=== PATIENT | female | born 1950 | race Caucasian/White ===

== ENCOUNTER → 2016-06-27 | Outpatient (CLI) | payer BC ==
[~2016-06-27] MED LIST: ACAI500C2 PO; B-COTAB18 PO; BIOT1CAP8 PO; CALC-51 PO; CARB25TA2 PO; DORZ1SOL6 OPB; ESTR1CRE PV; FERR1TAB23 PO; FEXO1TAB49 PO; FLUT0.15 NAE; GLUCPOW41 PO; LACTCAP3 PO; LEVO50TA6 PO; MAGN250T22 PO; MULT-506 PO; OMEGCAP2 PO; OXYC-57 PO; TURM1CAP4 PO; VITACAP26 PO; VITAMIN D PO; [UNRECOGNIZED DRUG - OTHER] PO
--- NOTE | 2016-06-27 12:59 | DIAGNOSTIC IMAGING REPORT ---
CT SINUSES WITH BRAIN LAB CT DOSE: 474.75 mGy.cm CLINICAL HISTORY: Sinus blockage. TECHNIQUE: Helical images were acquired in the transverse plane. Coronal reformatted images and sagittal reformatted images were reviewed. COMPARISON STUDY: 05/29/2008 FINDINGS: No orbital lesions are visualized. The mastoid air cells appear symmetrically aerated. Middle ear cavities appear well aerated. There is mild to moderate right maxillary sinus mucosal thickening. There is minimal left maxillary sinus mucosal thickening. The Sphenoid and ethmoid sinuses appear clear. The frontal sinuses appear hypoplastic. The ostiomeatal units appear patent bilaterally. There is a right-sided Buffy cell There is a 15 mm expansile lytic lesion, related to the roots of 2 right-sided maxillary molars. There is focal disruption of the floor the right maxillary sinus. The finding was not present on the preceding study. Also evident are apical lucencies related to left maxillary molars. IMPRESSION: 1. The ostiomeatal units are patent bilaterally 2. Moderate right maxillary sinus mucosal thickening 3. Lytic lesions related to the roots of bilateral maxillary molars. These likely represent periapical cysts. On the right, the cyst is expansile with focal disruption of the floor the right maxillary sinus. Oral surgeon/dental consultation should be considered. Electronically signed by: Enio Christensen M.D. 06/27/2016 12:58 PM Dictated Date/Time: 06/27/2016 12:49 PM
== END | disposition home or self-care (01) ==
LOC: C.CTS 12:35
PROVIDERS: ATTEND Otolaryngology
DX: J32.9 Chronic sinusitis, unspecified (principal)

== ENCOUNTER → 2016-07-04 | Outpatient (CLI) | payer BC | LOC: C.CPL 11:50 | PROVIDERS: ATTEND Otolaryngology | DX: Z01.818 Encounter for other preprocedural examination (principal) ==

== ENCOUNTER → 2016-07-12 | Outpatient (CLI) | payer BC ==
[~2016-07-12] MED LIST changes: -[UNRECOGNIZED DRUG - OTHER] PO
--- NOTE | 2016-07-12 09:45 | DIAGNOSTIC IMAGING REPORT ---
LEFT PELVIS UNI HIP 2-3 V CLINICAL HISTORY: LEFT HIP, FOOT, HAND PAIN pain COMPARISON: None. DISCUSSION: Generalized moderate degenerative change. No evidence for acetabular protrusion. Sclerosis of the articular services. There is no evidence for soft tissue swelling. IMPRESSION: Generalized moderate degenerative change. No acute process. Electronically signed by: Lucas Westbrook M.D. 07/12/2016 9:44 AM Dictated Date/Time: 07/12/2016 9:39 AM
--- NOTE | 2016-07-12 09:47 | DIAGNOSTIC IMAGING REPORT ---
LEFT HAND 3 VIEWS CLINICAL HISTORY: Left hand pain. FINDINGS: 3 views of the left hand are compared to study dated 04/14/2010. The skeletal structures are osteopenic. No fracture is seen. Mild narrowing is seen at the radiocarpal articulation. Mild osteoarthritic change is noted at the first carpometacarpal and metacarpophalangeal joints. Mild osteoarthritic change is also seen involving the interphalangeal joints, distal greater than proximal. No erosive change is seen. Overlying soft tissues are within normal limits. IMPRESSION: Osteopenia and arthritic change as above. No acute bony abnormality is identified. Electronically signed by: Cipriano Lopez M.D. 07/12/2016 9:46 AM Dictated Date/Time: 07/12/2016 9:45 AM
--- NOTE | 2016-07-12 09:48 | DIAGNOSTIC IMAGING REPORT ---
LEFT FOOT 3 VIEWS HISTORY: LEFT HIP, FOOT, HAND PAIN COMPARISON: None. FINDINGS: There is no fracture or dislocation. Soft tissues are unremarkable. No radiopaque foreign bodies. Small soft tissue and bony bunion. Cartilage spaces are maintained. The Lisfranc joint is intact. IMPRESSION: No fractures. Electronically signed by: Cam Zeng M.D. 07/12/2016 9:47 AM Dictated Date/Time: 07/12/2016 9:45 AM
== END | disposition home or self-care (01) ==
LOC: C.RDSM 09:26
PROVIDERS: ATTEND Family Medicine
DX: M25.552 Pain in left hip (principal); M79.672 Pain in left foot; M79.642 Pain in left hand

== ENCOUNTER → 2016-07-21 | Day surgery (SDC) | payer BC ==
[2016-07-06 11:26] VITALS: Ht 153.7 cm; Wt 53.2 kg
--- NOTE | 2016-07-20 21:28 | HISTORY & PHYSICAL EXAMINATION ---
DATE OF ADMISSION: 06/27/2016 DIAGNOSIS: Chronic sinusitis. HISTORY OF PRESENT ILLNESS: A 66-year-old lady with significant recurrent chronic sinusitis. CT scan documented opacification of both maxillary sinuses. PAST MEDICAL HISTORY: Medical problems: Arthritis. SURGERIES: Carpal tunnel repair, uterine fibroid removal, and cyst left arm. MEDICATIONS: Levothyroxine, Sinemet, Michaela, and Cosopt. ALLERGIES: AMOXICILLIN, CIPRO AND SULFONAMIDES. REVIEW OF SYSTEMS: Positive for arthritis. SOCIAL HISTORY: nonsmoker. PHYSICAL EXAMINATION: GENERAL: WNWD female. VITAL SIGNS: 5 feet and 117 pounds. HEAD: Normocephalic. EYES: Normal. EARS: Tympanic membranes intact. NOSE: Nasal passages show swollen turbinates. THROAT: Oropharynx normal. NECK: Supple. HEART: RRR. LUNGS: Clear. ABDOMEN: Soft. GENITOURINARY: Deferred. IMPRESSION: Recurrent and chronic sinusitis. PLAN: For endoscopic sinus surgery. CAMERON
[~2016-07-21] VITALS: Ht 153.7 cm; Wt 53.2 kg
[~2016-07-21] MED LIST changes: +ATROPINE SULFATE 0.1 MG/ML 5ML SYR IV PRN; +CEFAZOLIN 1000MG/55 ML D5W IV SCH; +DEXAMETHASONE SOD INJ 4 MG/ML VIAL ONE; +EpHEDrine SULFATE INJ 50 MG/ML AMP IV PRN; +EpINEphrine INJ 1MG/ML AMP 1 MG/ML AMP ONE; +FENTANYL CITRATE INJ 50 MCG/1 ML 2 ML VIAL IV PRN; +FENTANYL CITRATE INJ 50 MCG/1 ML 2 ML VIAL ONE; +LACTATED RINGER'S 1000ML 1,000 ML IV SCH; +LIDO 2%/EPINEPHRINE 1:100000 20 ML VIAL INFIL ONE; +LIDOCAINE 4% MPF SOAK 5 ML = 1 DOSE TOP ONE; +LIDOCAINE HCL 2% 2 ML VIAL (20MG/ML) ONE; +MIDAZOLAM HCL 1 MG/ML 2ML VIAL ONE; +ONDANSETRON INJ 2 MG/ML 2 ML VIAL IV PRN; +ONDANSETRON INJ 2 MG/ML 2 ML VIAL ONE; +OXYCODONE/ACETAMINOPHEN 5-325 TAB PO PRN; +OXYMETAZOLINE HCL 0.05% NA SPR 15 ML BTL SCH; +PATIENT'S ALLERGY INFO NEEDS ENTERED SCH; +PROPOFOL IV EMULSION 10 MG/ML 20 ML VIAL IV ONE; +SODIUM CHLORIDE 0.9% 1000ML 1,000 ML IV SCH
--- NOTE | 2016-07-21 10:20 | History & Physical Bridge Note ---
H&P Re-Evaluation Bridge Note: I have examined the patient, reviewed the History & Physical and in the interval since the performance of the History & Physical I have noted the following changes of clinical significance: No changes noted
--- NOTE | 2016-07-21 10:22 | Discharge Instructions-SurgCtr ---
Discharge Instructions Date of Service July 21, 2016. Visit Reason for Visit: Chronic Sinusitis Discharge Discharge Diagnosis / Problem: same Discharge Goals Goal(s): Improve function Medications Stopped Medications Name(s): 2 advil taken yesterday am Activity Recommendations Activity Limitations: resume your previous activity Anesthesia . Post Anesthesia Instructions: If you have had General Anesthesia or IV Sedation: * Do not drive today. * Resume driving when surgeon permits. * Do not make important decisions or sign legal documents today. * Call surgeon for: 1. Temperature elevations greater than 101 degrees F. 2. Uncontrollable pain. 3. Excessive bleeding. 4. Persistent nausea and vomiting. 5. Medication intolerance (nausea, vomiting or rash). * For nausea and vomiting use only clear liquids such as: tea, soda, bouillon until nausea subsides, then gradually increase diet as tolerated. * If you have any concerns or questions, call your surgeon's office. If physician is unavailable and it is an emergency, call 911 or go to the nearest emergency room. . Instructions / Follow-Up Instructions / Follow-Up ACTIVITY RECOMMENDATIONS: * Being up and around is good, but no strenuous activity, heavy lifting or physical exertion for one week. * Keep your head elevated 30 degrees when lying down or sleeping. * Do not blow your nose for 48 hours, sniff back instead. * Avoid hot showers. OVER THE COUNTER MEDICATIONS: * You may use Tylenol * Avoid aspirin or aspirin containing products, e.g. as they may increase bleeding. SPECIAL CARE INSTRUCTIONS: * Expect to have bloody drainage from your nose and/or down your throat for one to three days. Change drip pad as needed. * Begin irrigating your nose with saline solution today, at least six to ten times per day and sniff back to help remove old clots or crust. * You may experience nasal and facial congestion, pain and pressure, this is normal. * Please call with any significant and/or progressive pain, redness, swelling around the eyes, visual changes, fever of 101.5 degrees F, active bleeding or any problems or concerns. * If active bleeding occurs, spray the nose three times at one minute intervals with Afrin spray and call or cell phone: . If unable to reach the doctor, go to the nearest Emergency Department. Special Diet: * Avoid extremely hot fluids. FOLLOW UP VISIT: Follow-up Visit with Dr. Mcmanus If not already scheduled, please call to schedule. Diet Recommendations Home Diet: no limitations Pending Studies Studies pending at discharge: no Medical Emergencies . Who to Call and When: Medical Emergencies: If at any time you feel your situation is an emergency, please call 911 immediately. . Non-Emergent Contact Non-Emergency issues call your: Primary Care Provider . . "Provider Documentation" section prepared by Pamela Mcmanus. . [place] Drug Monitoring Program Search Results: no issues identified
--- NOTE | 2016-07-21 12:01 | OPERATIVE REPORT ---
DATE OF OPERATION: 07/21/2016 PREOPERATIVE DIAGNOSIS: Chronic sinusitis. POSTOPERATIVE DIAGNOSIS: Same. PROCEDURE: Right and left frontal, right and left total ethmoid and right and left maxillary sinus antrostomy. SURGEON: Dr. Mcmanus. ANESTHESIA: General LMA. COMPLICATIONS: None. BLOOD LOSS: 30 mL. HISTORY OF PRESENT ILLNESS: This 66-year-old lady presented with recurrent and chronic sinusitis, opacified maxillary sinuses. DESCRIPTION OF PROCEDURE: The patient brought to the operating room and placed in supine position. General anesthesia was induced using LMA, prepped, draped in usual sterile manner. The nose was decongested using cottonoids with topical solution of 4 mL of 4% Xylocaine mixed with 1 mL of epinephrine. Injection 1% Xylocaine with 1:1,000 strength epinephrine was also used. The right maxillary sinus was cannulated with guidewire and dilated using the 6 mm balloon. The guidewire was removed and the maxillary sinus was irrigated clean with 60 mL of saline. Left maxillary sinus was also dilated with the 6 mm balloon. The right nasal frontal duct was cannulated with guidewire and dilated using the 6 mm balloon with [email or web address] computer guidance. The right frontal sinus was small. The guidewire was left in place as a marker, guidewire was used as a marker for frontal sinusotomy, which was performed by coupling the shaver with the [email or web address] device and then removing the anterior wall and then the posterior wall of the agger nasi cell, opening up the nasofrontal duct. At this point, total ethmoidectomy was performed opening up the bullae ethmoidalis going through the ground lamella into the posterior ethmoid air cells. Using the shaver coupled with the [email or web address] device, the skull base and lamina papyracea were delineated and then followed anteriorly to exonerating all the posterior ethmoid air cells with polypoid mucosa and then up to the previously dilated nasofrontal duct with the shaver opening up all the anterior ethmoid air cells. Maxillary sinus was further widened using a seeker posteriorly and then widened using the shaver opening the maxillary ostia to 1 cm to visualize inside the maxillary sinus. Maxillary sinus was suctioned clean with the angled suction. The left frontal sinusotomy, total ethmoidectomy, and maxillary sinus antrostomy performed in similar manner. Propel stents were placed. The patient tolerated procedure well and was taken to recovery area in satisfactory condition. I attest to the content of the Intraoperative Record and any orders documented therein. Any exceptio ns are noted below.
--- NOTE | 2016-07-21 12:29 | Anesthesia Progress Nt - [facility] ---
Anesthesia Post Op Note Date & Time July 21, 2016 at 12:29 Vital Signs Pain Intensity: 3 Vital Signs Past 12 Hours Date Time Temp Pulse Resp B/P Pulse Ox O2 Delivery O2 Flow Rate FiO2 07/21/16 12:18 137/70 100 07/21/16 12:16 36.4 07/21/16 12:15 47 12 100 07/21/16 12:15 45 12 07/21/16 12:11 123/69 07/21/16 12:10 46 16 98 07/21/16 12:10 45 16 07/21/16 12:07 135/70 07/21/16 12:05 52 16 07/21/16 12:05 51 16 99 07/21/16 12:02 162/51 07/21/16 12:00 56 16 07/21/16 12:00 16 07/21/16 11:56 100/79 07/21/16 11:55 54 12 100 07/21/16 11:55 54 12 07/21/16 11:51 126/77 07/21/16 11:50 62 13 07/21/16 11:50 63 13 99 07/21/16 11:46 102/55 07/21/16 11:45 48 14 97 07/21/16 11:45 47 14 07/21/16 11:41 104/55 07/21/16 11:40 49 11 97 07/21/16 11:40 50 11 07/21/16 11:36 104/57 07/21/16 11:35 50 14 97 07/21/16 11:35 50 14 07/21/16 11:31 101/60 07/21/16 11:30 53 13 07/21/16 11:30 53 13 96 07/21/16 11:29 36.2 54 14 100/58 96 Humidified Oxygen 10 Diffusion Mask 07/21/16 08:37 36.7 59 16 102/69 95 Room Air Notes Mental Status: alert / awake / arousable, participated in evaluation Pt Amnestic to Procedure: Yes Nausea / Vomiting: adequately controlled Pain: adequately controlled Airway Patency, RR, SpO2: stable & adequate BP & HR: stable & adequate Hydration State: stable & adequate Anesthetic Complications: no major complications apparent
[2016-07-21 12:54] VITALS: BP 121/74; PULSE 42; TEMP 36.4; O2SAT 100
== END | disposition home or self-care (01) ==
LOC: X.SURG 08:15
PROVIDERS: ATTEND Otolaryngology
DX: J32.9 Chronic sinusitis, unspecified (principal); M19.90 Unspecified osteoarthritis, unspecified site

== ENCOUNTER → 2016-08-09 | Day surgery (SDC) | payer BC ==
[2016-08-05 13:38] VITALS: Ht 153.7 cm; Wt 53.2 kg
[~2016-08-09] VITALS: Ht 153.7 cm; Wt 53.2 kg
[~2016-08-09] MED LIST changes: -ATROPINE SULFATE 0.1 MG/ML 5ML SYR IV PRN; +BRIMONIDINE TART 0.2% OP SOLN PER DROP CHARGE OPL ONE; +BRIMONIDINE TART 0.2% OP SOLN PER DROP CHARGE OPL SCH; +BRIMONIDINE TARTRATE 0.2% 5ML OP SCH; -CEFAZOLIN 1000MG/55 ML D5W IV SCH; -DEXAMETHASONE SOD INJ 4 MG/ML VIAL ONE; -EpHEDrine SULFATE INJ 50 MG/ML AMP IV PRN; -EpINEphrine INJ 1MG/ML AMP 1 MG/ML AMP ONE; -FENTANYL CITRATE INJ 50 MCG/1 ML 2 ML VIAL IV PRN; -FENTANYL CITRATE INJ 50 MCG/1 ML 2 ML VIAL ONE; -LACTATED RINGER'S 1000ML 1,000 ML IV SCH; -LIDO 2%/EPINEPHRINE 1:100000 20 ML VIAL INFIL ONE; -LIDOCAINE 4% MPF SOAK 5 ML = 1 DOSE TOP ONE; -LIDOCAINE HCL 2% 2 ML VIAL (20MG/ML) ONE; -MIDAZOLAM HCL 1 MG/ML 2ML VIAL ONE; -ONDANSETRON INJ 2 MG/ML 2 ML VIAL IV PRN; -ONDANSETRON INJ 2 MG/ML 2 ML VIAL ONE; -OXYCODONE/ACETAMINOPHEN 5-325 TAB PO PRN; -OXYMETAZOLINE HCL 0.05% NA SPR 15 ML BTL SCH; -PATIENT'S ALLERGY INFO NEEDS ENTERED SCH; +PILOCARPINE HCL 2% OP SOLN PER DROP CHARGE OPL SCH; +PROPARACAINE 0.5% OP SOLN PER DROP CHARGE OPL SCH; -PROPOFOL IV EMULSION 10 MG/ML 20 ML VIAL IV ONE; +PrednisoLONE ACET 1% OP SUSP 5 ML BTL OP SCH; -SODIUM CHLORIDE 0.9% 1000ML 1,000 ML IV SCH; +[UNRECOGNIZED DRUG - REMARK] SCH
[2016-08-09 11:19] VITALS: BP 121/58; PULSE 51; O2SAT 96
--- NOTE | 2016-08-09 11:21 | Discharge Instructions-SurgCtr ---
Discharge Instructions Date of Service Aug 09, 2016. Visit Reason for Visit: Glaucoma Discharge Discharge Diagnosis / Problem: Glaucoma Discharge Goals Goal(s): Improve disease control Activity Recommendations Activity Limitations: resume your previous activity Anesthesia . Post Anesthesia Instructions: If you have had General Anesthesia or IV Sedation: * Do not drive today. * Resume driving when surgeon permits. * Do not make important decisions or sign legal documents today. * Call surgeon for: 1. Temperature elevations greater than 101 degrees F. 2. Uncontrollable pain. 3. Excessive bleeding. 4. Persistent nausea and vomiting. 5. Medication intolerance (nausea, vomiting or rash). * For nausea and vomiting use only clear liquids such as: tea, soda, bouillon until nausea subsides, then gradually increase diet as tolerated. * If you have any concerns or questions, call your surgeon's office. If physician is unavailable and it is an emergency, call 911 or go to the nearest emergency room. . Instructions / Follow-Up Instructions / Follow-Up ACTIVITY RECOMMENDATIONS: * No limitations RETURN TO SCHOOL/WORK: * No limitations DIET: * No limitations MEDICATIONS: Resume previous medications unless instructed otherwise by your surgeon. * Please use Prednisolone acetate drops prescription given to you at your office appointment as follows: 1 drop in effected eye 4 times a day for 5 days. * Continue all glaucoma drops as usual with no interruption to either eye. SPECIAL CARE INSTRUCTIONS: Call your doctor at with any concerns or problems. FOLLOW UP VISIT: Follow-up with Dr Valenzuela in 1 hour. Diet Recommendations Home Diet: resume previous diet Pending Studies Studies pending at discharge: no Medical Emergencies . Who to Call and When: Medical Emergencies: If at any time you feel your situation is an emergency, please call 911 immediately. . Non-Emergent Contact Non-Emergency issues call your: Breakfast Host . . "Provider Documentation" section prepared by Yariel Valenzuela. .
--- NOTE | 2016-08-09 11:22 | [facility] Operative Report ---
Operative Report Date of Service Aug 09, 2016. Operative Report Diagnosis: Open angle glaucoma, left eye Procedure: SLT left eye, inferior 180 degrees, 72 spots, 1.3 mJ Complications: none I attest to the content of the Intraoperative Record and any orders documented therein. Any exceptions are noted below.
== END | disposition home or self-care (01) ==
LOC: X.SURG 09:49
PROVIDERS: ATTEND Ophthalmology
DX: H40.10X0 Unspecified open-angle glaucoma, stage unspecified (principal)

== ENCOUNTER → 2016-10-17 | Outpatient (CLI) | payer BC ==
[~2016-10-17] MED LIST changes: -BRIMONIDINE TART 0.2% OP SOLN PER DROP CHARGE OPL ONE; -BRIMONIDINE TART 0.2% OP SOLN PER DROP CHARGE OPL SCH; -BRIMONIDINE TARTRATE 0.2% 5ML OP SCH; -PILOCARPINE HCL 2% OP SOLN PER DROP CHARGE OPL SCH; -PROPARACAINE 0.5% OP SOLN PER DROP CHARGE OPL SCH; -PrednisoLONE ACET 1% OP SUSP 5 ML BTL OP SCH; -[UNRECOGNIZED DRUG - REMARK] SCH
== END | disposition home or self-care (01) ==
LOC: C.RDSM 14:38
PROVIDERS: ATTEND Physical Medicine & Rehabilitation Sports Medicine
DX: M25.559 Pain in unspecified hip (principal)

== ENCOUNTER → 2016-10-21 | Outpatient (CLI) | payer BC ==
[~2016-10-21] MED LIST changes: -OXYC-57 PO
--- NOTE | 2016-10-21 15:28 | DIAGNOSTIC IMAGING REPORT ---
LEFT ELBOW MIN 3 VIEWS CLINICAL HISTORY: 66 years-old Female presenting with LEFT ELBOW MASS. TECHNIQUE: Frontal, oblique, and lateral views of the left elbow were obtained. COMPARISON: None. FINDINGS: No acute fracture or malalignment. No osseous erosion. No gross evidence of an elbow joint effusion. Regional soft tissues normal without radiographic evidence of a large mass. IMPRESSION: No acute osseous injury of the right elbow. If there is clinical concern for a soft tissue abnormality, MRI could be obtained. Electronically signed by: Robel Newman M.D. 10/21/2016 3:27 PM Dictated Date/Time: 10/21/2016 3:26 PM
== END | disposition home or self-care (01) ==
LOC: C.RDSM 14:35
PROVIDERS: ATTEND Physician Assistant
DX: R22.32 Localized swelling, mass and lump, left upper limb (principal)

== ENCOUNTER → 2016-10-21 | Outpatient (CLI) | payer BC ==
[2016-10-21 16:52] LABS: BASO % 0.6 %; BASO ABS # 0.04 K/uL (0-0.2); COMPLETE YES; EOS % 4.6 %; HEMATOCRIT 39.8 % (37-47); IG% 0.2 %; LYMPH % 16.7 %; LYMPH ABS # 1.05 K/uL (1.2-3.4); MEAN CELL VOLUME 87.9 fL (80-100); MEAN CORPUSCULAR HEMOGLOBIN 28.7 pg (25-34); MEAN CORPUSCULAR HGB CONC 32.7 g/dl (32-36); MEAN PLATELET VOLUME 10.2 fL (7.4-10.4); MONO % 10.2 %; NEUT % 67.7 %; PLATELET COUNT 300 K/uL (130-400); RED BLOOD COUNT 4.53 M/uL (4.2-5.4); WHITE BLOOD COUNT 6.27 K/uL (4.8-10.8)
[2016-10-21 17:31] LABS: BLOOD UREA NITROGEN 13 mg/dl (7-18); BUN/CREATININE RATIO 21.8 (10-20); CALCIUM 9.3 mg/dl (8.5-10.1); CARBON DIOXIDE 32 mmol/L (21-32); CHLORIDE 104 mmol/L (98-107); CREATININE 0.61 mg/dl (0.60-1.20); GLUCOSE 76 mg/dl (70-99); SODIUM 139 mmol/L (136-145)
== END | disposition home or self-care (01) ==
LOC: C.CPL 15:56
PROVIDERS: ATTEND Physician Assistant
DX: R22.32 Localized swelling, mass and lump, left upper limb (principal)

== ENCOUNTER → 2016-11-01 | Day surgery (SDC) | payer BC ==
[2016-10-19 10:31] VITALS: Ht 153.7 cm; Wt 53.2 kg
[~2016-11-01] VITALS: Ht 153.7 cm; Wt 53.2 kg
[~2016-11-01] MED LIST changes: +ATROPINE SULFATE 0.1 MG/ML 5ML SYR IV PRN; +BUPIVACAINE 0.5 % 5 MG/1 ML MPF 30ML VIAL ONE; +CEFAZOLIN 2000 MG/60 ML D5W IV SCH; +DEXAMETHASONE SOD INJ 4 MG/ML VIAL IV PRN; +DEXAMETHASONE SOD INJ 4 MG/ML VIAL ONE; +EpHEDrine SULFATE INJ 50 MG/ML AMP IV PRN; +FENTANYL CITRATE INJ 50 MCG/1 ML 2 ML VIAL IV PRN; +FENTANYL CITRATE INJ 50 MCG/1 ML 2 ML VIAL ONE; +HYDROCODONE/ACETAMOPHEN 5/325MG TAB PO PRN; +KETOROLAC TROMETHAMINE 30 MG/ML VIAL IV. PRN; +LACTATED RINGER'S 1000ML 1,000 ML IV SCH; +METOCLOPRAMIDE HCL INJ 5 MG/ML 2 ML VIAL IV PRN; +MIDAZOLAM HCL 1 MG/ML 2ML VIAL ONE; +MoRPHine SULFATE 10 MG/ML CARP/VIAL IV PRN; +ONDANSETRON INJ 2 MG/ML 2 ML VIAL IV PRN; +ONDANSETRON INJ 2 MG/ML 2 ML VIAL ONE; +PHENYLEPHRINE 100MCG/ML 5ML SYR IV PRN; +PROPOFOL IV EMULSION 10 MG/ML 20 ML VIAL IV ONE
--- NOTE | 2016-11-01 06:48 | History & Physical Bridge Note ---
H&P Re-Evaluation Bridge Note: I have examined the patient, reviewed the History & Physical and in the interval since the performance of the History & Physical I have noted the following changes of clinical significance: consent obtained;recuurence noted. No changes noted
--- NOTE | 2016-11-01 06:50 | Discharge Instructions ---
Discharge Instructions Date of Service Nov 01, 2016. Visit Reason for Visit: Left Elbow Soft Tissue Mass Discharge Discharge Diagnosis / Problem: same Discharge Goals Goal(s): Decrease discomfort Medications Stopped Medications Name(s): na Restart Stopped Medication(s): resume /use all scripts as directed Activity Recommendations Activity Limitations: as noted below Lifting Limitations: until after follow-up appointment Exercise/Sports Limitations: until after follow-up appointment May Resume Sexual Activity: when tolerated Shower/Bathe: keep incision dry Driving or Machine Use: no limitations Anesthesia . Post Anesthesia Instructions: If you have had General Anesthesia or IV Sedation: * Do not drive today. * Resume driving when surgeon permits. * Do not make important decisions or sign legal documents today. * Call surgeon for: 1. Temperature elevations greater than 101 degrees F. 2. Uncontrollable pain. 3. Excessive bleeding. 4. Persistent nausea and vomiting. 5. Medication intolerance (nausea, vomiting or rash). * For nausea and vomiting use only clear liquids such as: tea, soda, bouillon until nausea subsides, then gradually increase diet as tolerated. * If you have any concerns or questions, call your surgeon's office. If physician is unavailable and it is an emergency, call 911 or go to the nearest emergency room. . Instructions / Follow-Up Instructions / Follow-Up DIET: * Resume previous diet. MEDICATIONS: * Please take your prescriptions as instructed at your pre-op appointment and/ or see medication discharge instructions listed above. * If concerns develop, call your physician's office at . SPECIAL CARE INSTRUCTIONS: * Ice/Elevate as instructed. * Keep dressing clean, dry, intact. * Your surgical extremity may be discolored due to prepping agents used on the skin. A bluish-green tint is a normal variant and should not cause alarm. Call your doctor at [phone] if: * Temperature above 101 degrees * Pain not relieved by pain medicine ordered * There is increased drainage or redness from any incision * You have any unanswered questions, problems or concerns. FOLLOW UP VISIT: * If not already scheduled, please call the office at to schedule a follow-up appointment. Diet Recommendations Recommended Home Diet: resume previous diet Procedures Procedures Performed: excional biopsy Pending Studies Studies pending at discharge: yes List of pending studies: path on tissue Medical Emergencies . Who to Call and When: Medical Emergencies: If at any time you feel your situation is an emergency, please call 911 immediately. . Non-Emergent Contact Non-Emergency issues call your: Specialist Call Non-Emergent contact if: temperature is above 101.5 . . "Provider Documentation" section prepared by Zain Chopra. .
--- NOTE | 2016-11-01 08:15 | [facility] Post Operative Brief Note ---
Immediate Operative Summary Operative Date Nov 01, 2016. Pre-Operative Diagnosis Left Elbow Soft Tissue Mass Post-Operative Diagnosis Same Procedure(s) Performed Left Elbow Excisional Biopsy Surgeon Dr Chopra Podiatric Medicine Doctor Surgeon(s) Clarissa Ingram PA-C Estimated Blood Loss Trace Findings soft tissue mass Fluids (cc crystalloids) 550cc Specimens A: Left Elbow Soft Tissue Mass Drains none Anesthesia LMA Complication(s) None Disposition Recovery Room / PACU
--- NOTE | 2016-11-01 08:38 | OPERATIVE REPORT ---
DATE OF OPERATION: 11/01/2016 PREOPERATIVE DIAGNOSIS: Soft tissue mass, left arm. POSTOPERATIVE DIAGNOSIS: Same. OPERATION PERFORMED: Excisional biopsy permanent pathology pending. SURGEON: Dr. Chopra. DOPE AND FABRIC WORKER: Peter Ingram PA-C. No resident or fellow available. PERIOPERATIVE SITUATION: Medically cleared female who had a similar procedure done a couple years ago, has an area of slight recurrence, it was a very unusual lesion, may be related to rheumatoid nodules or granuloma annulare, was unclear. At this point we will proceed with reexcision to see if we can get a better diagnosis. OPERATION: The patient appropriately identified, site verified, consent verified including recurrence. The arm was prepped and draped in usual routine fashion. Tourniquet inflated to 250 mmHg after exsanguination of limb with a rubber Esmarch bandage for a total of 12 minutes. The old incision opened up, the area was then created full thickness flaps and then the tissue was excised. It was very superficial. It was removed in mass and in continuity. The wound was then irrigated and then closed with a running subcuticular 2-0 nylon, Dermabond and compressive dressing. The patient transferred to recovery room in satisfactory condition having tolerated the procedure well. Permanent pathology pending. Estimated blood loss trace. No DVT prophylaxis required. I attest to the content of the Intraoperative Record and any orders documented therein. Any exception s are noted below.
[2016-11-01 09:12] VITALS: TEMP 36.4
--- NOTE | 2016-11-01 09:15 | [facility] Operative Report ---
Operative Report Operative Date Nov 01, 2016. Pre-Operative Diagnosis Left Elbow Soft Tissue Mass Post-Operative Diagnosis Left elbow same Procedure(s) Performed Left Elbow Excisional Biopsy Surgeon Dr Chopra Nuclear Medical Technologist Surgeon(s) Clarissa Ingram PA-C Estimated Blood Loss Trace Findings Soft tissue mass left elbow Fluids (cc crystalloids) 550cc Specimens A: Left Elbow Soft Tissue Mass Drains none Complication(s) None Disposition Recovery Room / PACU Indications This 66-year-old white female presented the office with complaints of painful soft tissue mass at her left elbow. She previously had a similar mass excised a year and a half ago. The mass recurred. She elected to proceed with surgical intervention in hopes of improving her discomfort. Preoperative imaging was obtained. Description of Procedure Patient was taken to the operating room and given general anesthesia. She was prepped and draped in usual sterile fashion. Please see Dr. Chopra's operative report for specifics of the procedure. I was present for the entire case from initial patient positioning through final wound closure. Assistance was provided and patient positioning, tissue traction, hemostasis, and final wound closure. Patient was taken to the recovery room in satisfactory condition. I attest to the content of the Intraoperative Record and any orders documented therein. Any exceptions are noted below.
[2016-11-01 09:28] VITALS: BP 121/59; PULSE 50; O2SAT 100
--- NOTE | 2016-11-01 10:03 | Anesthesia Progress Nt - [facility] ---
Anesthesia Post Op Note Date & Time Nov 01, 2016 at 10:03 Vital Signs Pain Intensity: 3 Vital Signs Past 12 Hours Date Time Temp Pulse Resp B/P (MAP) Pulse Ox O2 Delivery O2 Flow Rate FiO2 11/01/16 09:28 50 16 121/59 (79) 100 Room Air 11/01/16 09:12 36.4 41 14 124/76 (92) 100 Room Air 11/01/16 08:56 36.5 127/66 11/01/16 08:54 55 15 11/01/16 08:54 56 15 96 11/01/16 08:51 112/70 11/01/16 08:49 68 16 96 11/01/16 08:49 69 16 11/01/16 08:46 121/63 11/01/16 08:44 55 14 11/01/16 08:44 54 14 98 11/01/16 08:41 104/62 11/01/16 08:39 55 11 98 11/01/16 08:39 55 11 11/01/16 08:36 98/60 11/01/16 08:34 57 12 98 11/01/16 08:34 57 12 11/01/16 08:31 111/62 11/01/16 08:29 58 10 11/01/16 08:29 57 10 97 11/01/16 08:26 105/63 11/01/16 08:24 57 10 11/01/16 08:24 58 10 97 11/01/16 08:21 121/58 11/01/16 08:20 116/67 11/01/16 08:19 58 11/01/16 08:19 37 57 16 116/67 97 Mask 6 11/01/16 08:19 58 97 11/01/16 06:40 37.4 54 22 112/69 (83) 99 Room Air Notes Mental Status: alert / awake / arousable, participated in evaluation Pt Amnestic to Procedure: Yes Nausea / Vomiting: adequately controlled Pain: adequately controlled Airway Patency, RR, SpO2: stable & adequate BP & HR: stable & adequate Hydration State: stable & adequate Anesthetic Complications: no major complications apparent
--- NOTE | 2016-11-03 11:29 | EDITING REQUIRED CODING QUERY ---
CODING CLARIFICATION Please clarify the size of the soft tissue mass that was excised in centimeters: 0.5 x2.0 cm Thank you for your assistance, Lyn Guzman - Shredder Operator
== END | disposition home or self-care (01) ==
LOC: X.SURG 06:31
PROVIDERS: ATTEND Physical Medicine & Rehabilitation Sports Medicine
DX: L92.9 Granulomatous disorder of the skin and subcutaneous tissue, unspecified (principal); E03.9 Hypothyroidism, unspecified; G47.30 Sleep apnea, unspecified; Z82.49 Family history of ischemic heart disease and other diseases of the circulatory system

== ENCOUNTER → 2016-11-10 | Outpatient (CLI) | payer BC ==
[~2016-11-10] MED LIST changes: -ATROPINE SULFATE 0.1 MG/ML 5ML SYR IV PRN; -BUPIVACAINE 0.5 % 5 MG/1 ML MPF 30ML VIAL ONE; -CEFAZOLIN 2000 MG/60 ML D5W IV SCH; -DEXAMETHASONE SOD INJ 4 MG/ML VIAL IV PRN; -DEXAMETHASONE SOD INJ 4 MG/ML VIAL ONE; -EpHEDrine SULFATE INJ 50 MG/ML AMP IV PRN; -FENTANYL CITRATE INJ 50 MCG/1 ML 2 ML VIAL IV PRN; -FENTANYL CITRATE INJ 50 MCG/1 ML 2 ML VIAL ONE; -HYDROCODONE/ACETAMOPHEN 5/325MG TAB PO PRN; -KETOROLAC TROMETHAMINE 30 MG/ML VIAL IV. PRN; -LACTATED RINGER'S 1000ML 1,000 ML IV SCH; -METOCLOPRAMIDE HCL INJ 5 MG/ML 2 ML VIAL IV PRN; -MIDAZOLAM HCL 1 MG/ML 2ML VIAL ONE; -MoRPHine SULFATE 10 MG/ML CARP/VIAL IV PRN; -ONDANSETRON INJ 2 MG/ML 2 ML VIAL IV PRN; -ONDANSETRON INJ 2 MG/ML 2 ML VIAL ONE; -PHENYLEPHRINE 100MCG/ML 5ML SYR IV PRN; -PROPOFOL IV EMULSION 10 MG/ML 20 ML VIAL IV ONE
--- NOTE | 2016-11-10 14:19 | MAMMOGRAPHY REPORT ---
BILATERAL DIGITAL SCREENING MAMMOGRAM WITH CAD: 11/10/2016 CLINICAL HISTORY: Routine screening. TECHNIQUE: Current study was also evaluated with a Computer Aided Detection (CAD) system. Bilateral CC and MLO views were obtained. COMPARISON: Comparison is made to exams dated: 11/09/2015 mammogram, 11/05/2014 mammogram, 10/31/2012 ronaldo mogram, 11/01/2013 mammogram, and 10/24/2011 mammogram - [facility]. BREAST COMPOSITION: There are scattered areas of fibroglandular density in both breasts. FINDINGS: No suspicious masses, calcifications, or areas of architectural distortion are noted in ei ther breast. There has been no significant interval change compared to prior exams. IMPRESSION: ACR BI-RADS CATEGORY 1: NEGATIVE There is no mammographic evidence of malignancy. A 1 year screening mammogram is recommended. The pa tient will receive written notification of the results. Approximately 10% of breast cancers are not detected with mammography. A negative mammographic report should not delay biopsy if a clinically suggestive mass is present. Ambar Craig M.D. /:11/10/2016 08:12:54 Central Office Mechanic: Matilda Schumacher, [facility] letter sent: Normal 1/2 BI-RADS Code: ACR BI-RADS Category 1: Negative
== END | disposition home or self-care (01) ==
LOC: C.MAMM 07:51
PROVIDERS: ATTEND Family Medicine
DX: Z12.31 Encounter for screening mammogram for malignant neoplasm of breast (principal)

== ENCOUNTER → 2016-11-24 | Outpatient (CLI) | payer BC | END | disposition home or self-care (01) | LOC: C.PAPS 10:58 | PROVIDERS: ATTEND Obstetrics & Gynecology | DX: Z01.411 Encounter for gynecological examination (general) (routine) with abnormal findings (principal); R87.612 Low grade squamous intraepithelial lesion on cytologic smear of cervix (LGSIL) ==

== ENCOUNTER → 2017-01-12 | Outpatient (CLI) | payer BC | END | disposition home or self-care (01) | LOC: C.PATHSPEC 15:45 | PROVIDERS: ATTEND Obstetrics & Gynecology | DX: R87.612 Low grade squamous intraepithelial lesion on cytologic smear of cervix (LGSIL) (principal) ==

== ENCOUNTER → 2017-02-17 | Outpatient (CLI) | payer BC ==
--- NOTE | 2017-02-17 14:12 | DIAGNOSTIC IMAGING REPORT ---
PELVIS/LEFT HIP MRI HISTORY: LEFT HIP PAIN TECHNIQUE: Multiplanar multisequence MRI of the pelvis/left hip were performed without the use of intravenous contrast. COMPARISON STUDY: Pelvis and right hip 10/17/2016. FINDINGS: No fracture or dislocation within the pelvis or hips. The visualized sacrum is intact. Trace bilateral hip effusions. Mild space narrowing within the bilateral hips with small marginal osteophytes. This is consistent with mild osteoarthritis. Small focus of subchondral cystic change within the right acetabulum also likely result of the long-standing degenerative change. Focal tear within the anterior labrum of the left hip is seen on the oblique images 8 and 9. Best seen on coronal image 9 of 16 there is an 11 x 4 mm intra-articular loose body adjacent to the lesser trochanter. IMPRESSION: 1. Left hip anterior labral tear. 2. Trace bilateral pleural effusions. 3. Mild osteoarthritis within the bilateral hips. 4. An 11 x 4 mm intra-articular loose body within the left hip. Electronically signed by: Cam Zeng M.D. 02/17/2017 2:10 PM Dictated Date/Time: 02/17/2017 1:59 PM
== END | disposition home or self-care (01) ==
LOC: C.MRIBC 13:15
PROVIDERS: ATTEND Family Medicine
DX: S73.192A Other sprain of left hip, initial encounter (principal); M24.052 Loose body in left hip; X58.XXXA Exposure to other specified factors, initial encounter

== ENCOUNTER → 2017-03-13 | Outpatient (CLI) | payer BC, OTHER | END | disposition home or self-care (01) | LOC: C.RDSM 08:03 | PROVIDERS: ATTEND Physical Medicine & Rehabilitation Sports Medicine | DX: M16.12 Unilateral primary osteoarthritis, left hip (principal) ==

== ENCOUNTER → 2017-04-13 | Outpatient (CLI) | payer OTHER | END | disposition home or self-care (01) | LOC: C.PATHSPEC 15:15 | PROVIDERS: ATTEND Obstetrics & Gynecology | DX: N87.0 Mild cervical dysplasia (principal) ==

== ENCOUNTER → 2017-06-19 | Outpatient (CLI) | payer OTHER | END | disposition federal hospital, planned readmission (88) | LOC: C.RDSM 14:25 | PROVIDERS: ATTEND Physical Medicine & Rehabilitation Sports Medicine | DX: M16.10 Unilateral primary osteoarthritis, unspecified hip (principal) ==

== ENCOUNTER 2021-07-14 05:16 | Observation (INO) ==
--- NOTE | 2021-06-28 16:33 | PAT Medication Instructions ---
Medication Instructions Date of Service June 28, 2021 Home Medications Citracal + D3 (calcium phos) 1,300 mg PO BID L.acid,cheyenne-B.bifid,long 70 mg (5 billion cell) tablet,delayed release (Probiotic Colon Support) 1 tab PO QDD carbidopa 10 mg-levodopa 100 mg tablet (Sinemet) 1 tab PO HS dorzolamide-timolol (PF) 2 %-0.5 % eye drops in a dropperette (Cosopt (PF)) 1 drp OPHTHALMIC (EYE) BID fexofenadine 180 mg tablet 180 mg PO QDD levothyroxine 50 mcg capsule 50 mcg PO QAM magnesium 200 mg tablet 200 mg PO QDD multivit with yiralblj-gcmm-VO-lutein 8 mg iron-400 mcg-300 mcg tablet (Multivitamin Women 50 Plus) 2 tab PO QDD L-Glutamine Powder 1 dose PO QDD Mitoq 1 dose PO QDD Zn-Zyme Forte 1 tab PO QDD turmeric root extract 500 mg capsule 500 mg PO BID STOP taking 2 weeks before surgery turmeric root extract 500 mg capsule 500 mg PO BID L-Glutamine Powder 1 dose PO QDD Mitoq 1 dose PO QDD DO NOT take the morning of surgery Citracal + D3 (calcium phos) 1,300 mg PO BID Take morning of surgery With a small sip of water, OTHERWISE NOTHING TO EAT OR DRINK AFTER MIDNIGHT: levothyroxine 50 mcg capsule 50 mcg PO QAM dorzolamide-timolol (PF) 2 %-0.5 % eye drops in a dropperette (Cosopt (PF)) 1 drp OPHTHALMIC (EYE) BID Take evening before surgery Zn-Zyme Forte 1 tab PO QDD magnesium 200 mg tablet 200 mg PO QDD multivit with yxjqgywg-wpme-WD-lutein 8 mg iron-400 mcg-300 mcg tablet (Multivitamin Women 50 Plus) 2 tab PO QDD carbidopa 10 mg-levodopa 100 mg tablet (Sinemet) 1 tab PO HS dorzolamide-timolol (PF) 2 %-0.5 % eye drops in a dropperette (Cosopt (PF)) 1 drp OPHTHALMIC (EYE) BID fexofenadine 180 mg tablet 180 mg PO QDD Citracal + D3 (calcium phos) 1,300 mg PO BID L.acid,cheyenne-B.bifid,long 70 mg (5 billion cell) tablet,delayed release (Probiotic Colon Support) 1 tab PO QDD Other Notes If you have any questions please call us at [phone] or [phone] or [phone] or [phone]
--- NOTE | 2021-07-02 15:00 | Anesthesiology Consultation ---
Date of Service July 02, 2021 Assessment & Plan (1) Encounter for pre-operative examination: - COVID screening: Per assessment on 07/02: No known COVID-19 positive contacts or current COVID-19 related symptoms. Travel screen negative. Patient vaccinated. Patient Covid positive 05/31/21 (positive home test and PCR) > mild cough, sore throat, BHATT, fatigue > resolved. Surgeon arranging preop COVID testing (scheduled 07/12; [place]). Awaiting results. Attempting to obtain initial Covid positive report from 05/2021 ([facility]). - PCP office visit (06/24/21): "Patient is good cardiac capacity with METS at least 4 and with RCRI at 3.9%, for an intermediate procedure. So patient is at acceptable risk." Chart Review Chart Review: Acceptable Risk for Surgery and Patient seen in Pre Admission Testing Teaching & Discussion Pre-Anesthesia Teaching/Discussion Notes: Instructed NPO after midnight before surgery,except medications with 15 cc of water. Medication instructions provided according to the PAT guidelines. History Surgery Operation Date: 07/14/21 10:50 Proposed Procedures p Right Total Hip Arthroplasty - Zain Chopra MD Height/Weight Height: 5 ft Weight: 52.5 kg Allergies Allergy/AdvReac Type Severity Reaction Status Date / Time amoxicillin Allergy Intermediate Itchy Verified 06/28/21 16:39 benzalkonium chloride Allergy Intermediate Red Verified 06/28/21 16:39 patches around eyes bimatoprost Allergy Intermediate Red Verified 06/28/21 16:39 patches around eyes Cipro Allergy Intermediate ITCHY Verified 11/01/16 06:46 ciprofloxacin Allergy Intermediate Itchy Verified 06/28/21 16:39 Penicillins Allergy Intermediate Itchy Verified 06/28/21 16:39 timolol Allergy Intermediate Red Verified 06/28/21 16:39 patches around eyes animal dander Allergy Mild Itching Verified 06/28/21 16:39 and redness at contact site brimonidine Allergy Mild Red Verified 06/28/21 16:39 patches around eyes pollen extracts Allergy Verified 10/21/20 17:03 Sulfa (Sulfonamide AdvReac Intermediate Joint Pain Verified 06/28/21 16:39 Antibiotics) Medications Home Medications Medication Instructions Recorded Confirmed Last Taken Citracal + D3 (calcium phos) 1,300 mg PO BID 04/17/19 06/28/21 09/02/19 L.acid,cheyenne-B.bifid,long 70 mg (5 1 tab PO QDD 04/17/19 06/28/21 09/02/19 billion cell) tablet,delayed release (Probiotic Colon Support) carbidopa 10 mg-levodopa 100 mg 1 tab PO HS 04/17/19 06/28/21 09/02/19 tablet (Sinemet) dorzolamide-timolol (PF) 2 %-0.5 % 1 drp OPHTHALMIC (EYE) BID 04/17/19 06/28/21 09/03/19 eye drops in a dropperette (Cosopt (PF)) fexofenadine 180 mg tablet 180 mg PO QDD 04/17/19 06/28/21 09/02/19 levothyroxine 50 mcg capsule 50 mcg PO QAM 04/17/19 06/28/21 09/03/19 magnesium 200 mg tablet 200 mg PO QDD 04/17/19 06/28/21 09/02/19 multivit with 2 tab PO QDD 04/17/19 06/28/21 09/02/19 jinodsym-uiwn-XW-lutein 8 mg iron-400 mcg-300 mcg tablet (Multivitamin Women 50 Plus) L-Glutamine Powder 1 dose PO QDD 06/28/21 06/28/21 Unknown Mitoq 1 dose PO QDD 06/28/21 Unknown Zn-Zyme Forte 1 tab PO QDD 06/28/21 06/28/21 Unknown turmeric root extract 500 mg 500 mg PO BID 06/28/21 06/28/21 Unknown capsule Past Medical History Medical History Glaucoma History of COVID-19 05/31/21 (positive [facility] test [facility] 05[facility]21) > mild cough, sore throat, BHATT, fatigue > resolved Hx of mitral valve prolapse Noted on remote echo. Per patient, f/u echo done 10+ years ago did not show evidence of valvular disease Hypothyroidism Osteopenia Restless leg syndrome Sensorineural hearing loss of both ears Vertigo Exercise / Class Metabolic Activity II 4-5 Yardwork/Stairs/Walk up hill (one FS (no CP, no SOB)) Past Family History Family History Brother Family history of diabetes mellitus Family/Other Family history of diabetes mellitus Aunt Breast cancer Grandmother (Paternal) Breast cancer Other Allergies Asthma Hearing loss Heart disease Hypertension No family history of adverse response to anesthesia No family history of bleeding disorder Denies family history of Ovarian cancer Colorectal cancer Past Surgical History Surgical History History of carpal tunnel surgery of right wrist History of cataract surgery R/L History of colonoscopy History of surgery on arm REMOVAL CYST LEFT ARM History of tooth extraction S/P myomectomy Past Anesthesia History No Hx of Anesthesia Complications and No Family Hx of Anesthesia Complications History of PONV No Hx of PONV and Hx of Motion Sickness Social History Smoking Status: Never smoker Do You Dip or Chew Tobacco: No Hx Alcohol Use: Yes Alcohol type: beer and wine alcohol intake frequency: a few times a month Hx Substance Use: No substance use type: does not use Review of Systems Patient denies chest pain, shortness of breath, dyspnea on exertion, fever, chills, cough, wheezing, palpitations. Physical Exam Vital Signs VITALS BP 120/72 P 60 TEMP 98.3 SP02 97%RA RESP 16 PHYSICAL Full cervical extension range of motion. Full TMJ range of motion. TMD 3.5 finger breaths Mallampati Score 3 Dentition: intact, + crowns, + implants Lungs: clear throughout to auscultation Cardiac: regular rate and rhythm, no murmurs noted Spine: normal Carotid arteries: negative bruit Extremities: no edema Lab Results Anesthesia Preop Results Results Anesthesia Widget: WBC 6.01 K/uL (4.8-10.8) 07/02/21 Hgb 12.7 g/dL (12.0-16.0) 07/02/21 Hct 38.9 % (37-47) 07/02/21 Plt 279 K/uL (130-400) 07/02/21 Na 139 mmol/L (136-145) 07/02/21 K 3.9 mmol/L (3.5-5.1) 07/02/21 Cl 104 mmol/L (98-107) 07/02/21 CO2 29 mmol/L (21-32) 07/02/21 BUN 21 mg/dl (6-23) 07/02/21 Creat 0.59 mg/dl (0.6-1.2) L 07/02/21 Glucose Level 99 mg/dl (70-99(Fasting)) 07/02/21 PT 10.5 Seconds (9.0-12.0) 07/02/21 PTT 34.0 Seconds (21.0-31.0) H 07/02/21 INR 1.0 (0.9-1.1) 07/02/21 Urine Color Dark Yellow 07/02/21 Urine Appearance Clear (Clear) 07/02/21 Urine pH 5.0 (4.5-7.5) 07/02/21 Urine Specific [place] 1.022 (1.000-1.030) 07/02/21 Urine Protein Negative (Negative) 07/02/21 Urine Glucose (UA) Negative (Negative) 07/02/21 Urine Ketones Negative (Negative) 07/02/21 Urine Blood Negative (Negative) 07/02/21 Urine Nitrite Negative (Negative) 07/02/21 Urine Bilirubin Negative (Negative) 07/02/21 Urine Urobilinogen Negative (Negative) 07/02/21 Urine Leukocyte Esterase Negative (Negative) 07/02/21 Blood Type A Positive 07/02/21 Antibody Screen POSITIVE A 07/02/21 Testing Laboratory Results [facility] at blood bank aware of positive antibodies- states that nothing further needed preoperatively from PAT standpoint* Electrocardiogram Date: 06/22/21 SB at 58bpm. Possible LAE. Chest X-Ray Date: 06/22/21 Findings: + NAD
--- NOTE | 2021-07-05 21:34 | History & Physical Report ---
Date of Service July 05, 2021 Assessment & Plan (1) Degenerative joint disease of right hip: Plan: Postoperative prescriptions for Percocet and warfarin 2 mg will be provided at discharge from the hospital. Anticipate discharge to home with outpatient PT. Postop appointment has been made with Florin for 07/16 at 10:30 a.m. She has no COVID symptoms, but states she had COVID approximately 4 weeks ago. The patient is aware of the COVID-19 risks associated with surgery. She is currently asymptomatic of any COVID-19 symptoms. She will obtain nasal swab testing on Monday prior to surgery. PDMP was checked and there are no concerning findings. The patient has access to a walker and cane and will bring them to the hospital. She will see PAT today for preop labs, EKG, and chest xray. History of Present Illness Chief Complaint: Right hip pain Primary Care Provider: Fahad Flood This 71-year-old female presents for her preoperative history and physical. She is scheduled to undergo a right total hip arthroplasty on 07/14/2021. The patient has had a longstanding history of right hip pain. It has been ongoing for years. It has become worse over the last 6 months. She notes difficulty with activity. She also has difficulty with standing. She denies any numbness or tingling. Pain is posterior and radiates around to her groin. It occasionally travels down her leg. Pain is affecting her ADLs. She has tried conservative care measures including activity modification and anti-inflammatories without improvement. Preoperative imaging has been obtained. Allergies Allergy/AdvReac Type Severity Reaction Status Date / Time amoxicillin Allergy Intermediate Itchy Verified 06/28/21 16:39 benzalkonium chloride Allergy Intermediate Red Verified 06/28/21 16:39 patches around eyes bimatoprost Allergy Intermediate Red Verified 06/28/21 16:39 patches around eyes Cipro Allergy Intermediate ITCHY Verified 11/01/16 06:46 ciprofloxacin Allergy Intermediate Itchy Verified 06/28/21 16:39 Penicillins Allergy Intermediate Itchy Verified 06/28/21 16:39 timolol Allergy Intermediate Red Verified 06/28/21 16:39 patches around eyes animal dander Allergy Mild Itching Verified 06/28/21 16:39 and redness at contact site brimonidine Allergy Mild Red Verified 06/28/21 16:39 patches around eyes pollen extracts Allergy Verified 10/21/20 17:03 Sulfa (Sulfonamide AdvReac Intermediate Joint Pain Verified 06/28/21 16:39 Antibiotics) Home Medications Medication Instructions Recorded Confirmed Type Citracal + D3 (calcium phos) 1,300 mg PO BID 04/17/19 06/28/21 History L.acid,cheyenne-B.bifid,long 70 mg (5 1 tab PO QDD 04/17/19 06/28/21 History billion cell) tablet,delayed release (Probiotic Colon Support) carbidopa 10 mg-levodopa 100 mg 1 tab PO HS 04/17/19 06/28/21 History tablet (Sinemet) dorzolamide-timolol (PF) 2 %-0.5 % 1 drp OPHTHALMIC (EYE) BID 04/17/19 06/28/21 History eye drops in a dropperette (Cosopt (PF)) fexofenadine 180 mg tablet 180 mg PO QDD 04/17/19 06/28/21 History levothyroxine 50 mcg capsule 50 mcg PO QAM 04/17/19 06/28/21 History magnesium 200 mg tablet 200 mg PO QDD 04/17/19 06/28/21 History multivit with 2 tab PO QDD 04/17/19 06/28/21 History mjfjapoi-ocdj-BC-lutein 8 mg iron-400 mcg-300 mcg tablet (Multivitamin Women 50 Plus) L-Glutamine Powder 1 dose PO QDD 06/28/21 06/28/21 History Mitoq 1 dose PO QDD 06/28/21 History Zn-Zyme Forte 1 tab PO QDD 06/28/21 06/28/21 History turmeric root extract 500 mg 500 mg PO BID 06/28/21 06/28/21 History capsule Past Med/Surg History Medical History (Updated 07/05/21 @ 21:32 by Peter Ingram PA-C) Asthma Glaucoma History of COVID-19 05/31/21 ([facility]21) > mild cough, sore throat, BHATT, fatigue > resolved Hx of mitral valve prolapse Noted on remote echo. Per patient, f/u echo done 10+ years ago did not show evidence of valvular disease Hypothyroidism Osteopenia Restless leg syndrome Sensorineural hearing loss of both ears Vertigo Surgical History (Updated 07/05/21 @ 21:29 by Peter Ingram PA-C) H/O tubal ligation History of carpal tunnel surgery of right wrist History of cataract surgery R/L History of colonoscopy History of surgery on arm REMOVAL CYST LEFT ARM History of tooth extraction S/P myomectomy Family History (Updated 07/05/21 @ 21:28 by Peter Ingram PA-C) Brother Family history of diabetes mellitus Family/Other Family history of diabetes mellitus Aunt Breast cancer Grandmother (Paternal) Breast cancer Other Allergies Asthma Dementia Hearing loss Heart disease Hypertension No family history of adverse response to anesthesia No family history of bleeding disorder Denies family history of Ovarian cancer Colorectal cancer Social History (Updated 07/05/21 @ 21:31 by Peter Ingram PA-C) Smoking Status: Never smoker Second Hand Exposure: No; Hx Alcohol Use: Yes Alcohol type: beer and wine Hx Substance Use: No Preferred Language: Ukrainian Communication Ability: Effective [employer] Product Manager Required: No Beliefs That Will Affect Care: None marital status: Current Living Situation: Family current occupational status: employed Feels Safe at Home: Yes Assistive Devices: Glasses Review of Systems Review of Systems: All systems reviewed & are unremarkable except as noted in HPI & below Physical Exam Physical Exam: Vitals: Height 152 cm, weight 53 kg, BMI 22.9, temperature 36.4, BP 120/62, pulse 74, O2 sat 99% on room air. General: Well-developed, well-nourished, elderly white female in no acute distress. Sitting in a chair. Alert and oriented. Skin: Warm and dry with good turgor. No rashes or lesions. No ecchymosis or erythema. HEENT: Normocephalic, atraumatic. Eyes: PERRLA, EOMI. Nares and oropharynx exams deferred due to COVID precautions. Heart: RRR. Soft systolic ejection murmur is noted at the upper sternal border. No gallops or rubs. Lungs: Clear to auscultation bilaterally. No crackles, rhonchi or wheezing. Good air movement. Abdomen: Bowel sounds present x4. Soft, nontender. No organomegaly. No masses. Musculoskeletal: Right hip evaluation reveals no obvious asymmetry or deformity. She has limited motion of the hip secondary to discomfort. Hip flexion to around 100 degrees, limited by pain. External rotation of around 10 degrees, internal rotation also of around 10 degrees, limited by pain. No pain with palpation over her greater trochanter or IT band. She does have pain with palpation over the anterior flexion crease. Ambulating with a slight limp. Neurologic: Gross sensation is intact across both lower extremities by soft touch. Peripheral pulses are 2+. Results & Data Results & Data ([facility]) Diagnostic Findings Radiographic imaging previously obtained of the hip shows end-stage DJD of the right hip with loss of joint space, periarticular osteophytes, and subchondral sclerosis. Code Status & VTE Plan VTE Prophylaxis Plan VTE Prophylaxis will be ordered: Yes
[2021-07-14] MEDS ORDERED: ceFAZolin 2000MG 2,000 MG/15 ML SYR IV SCH (06:00)
[2021-07-14] MEDS ORDERED: ROPIVACAINE 0.5% HCL/PF 150 MG, BUPIVACAINE 0.75% MPF 20 ML, EPINEPHrine 0.15 MG, Ketor... INFIL SCH (06:00)
[2021-07-14] MEDS ORDERED: LR 500ML BOLUS, THEN 15ML/HR IV SCH (06:00)
[2021-07-14] MEDS ORDERED: TRANEXAMIC ACID 1,000 MG **IV Pre-op IV SCH (06:00)
[2021-07-14] MEDS ORDERED: LR 60ML/HR IV SCH (06:00)
--- NOTE | 2021-07-14 06:21 | History & Physical Bridge Note ---
Date of Service July 14, 2021 History & Physical Bridge Note I have examined the patient, reviewed the History & Physical and in the interval since the performance of the History & Physical I have noted the following changes of clinical significance:consent obtained/site verified/covid screen negative. no changes noted
[2021-07-14] MEDS ORDERED: BUPIVACAINE 0.5 % 5 MG/1 ML PF 10ML VIAL ONE (06:25)
[2021-07-14] MEDS ORDERED: fentaNYL citrate 100 MCG/2 ML VIAL ONE (06:30)
[2021-07-14] MEDS ORDERED: MIDAZOLAM HCL 1 MG/ML 2ML VIAL ONE (06:30)
[2021-07-14] MEDS ORDERED: ATROPINE SULFATE 0.1 MG/ML 10ML SYR IV PRN (06:36)
[2021-07-14] MEDS ORDERED: ePHEDrine sulfate 50 MG/ML AMP IV PRN (06:36)
[2021-07-14] MEDS ORDERED: MoRPHine SULFATE 10 MG/ML CARP/VIAL IV PRN (06:36)
[2021-07-14] MEDS ORDERED: fentaNYL citrate 100 MCG/2 ML VIAL IV PRN (06:36)
[2021-07-14] MEDS ORDERED: ONDANSETRON INJ 2 MG/ML 2 ML VIAL IV PRN ×2 (06:36→10:08)
[2021-07-14] MEDS ORDERED: MEPERIDINE HCL 25 MG/ML CARP/VIAL IV PRN (06:36)
[2021-07-14] MEDS ORDERED: ORTHO JOINT ANESTHETIC ONE (06:39)
[2021-07-14] MEDS ORDERED: LIDOCAINE 2% 2 ML VIAL/AMP(20MG/ML) INFIL ONE (07:22)
[2021-07-14] MEDS ORDERED: ONDANSETRON INJ 2 MG/ML 2 ML VIAL ONE (07:22)
[2021-07-14] MEDS ORDERED: PROPOFOL IV EMULSION 10 MG/ML 20 ML VIAL IV ONE (07:22)
[2021-07-14] MEDS ORDERED: ePHEDrine sulfate 50 MG/ML AMP ONE (07:35)
--- NOTE | 2021-07-14 08:21 | Post Operative Brief Note ---
Immediate Post Op Note v1 Date of Surgery July 14, 2021 Pre & Post Diagnosis Operation Date: 07/14/21 07:00 Pre-Op Diagnosis: Right Hip Degenerative Joint Disease Post-Op Diagnosis: Right Hip Degenerative Joint Disease I identified the patient and participated in the time-out.: Yes Procedure Operation Date: 07/14/21 07:00 Actual Procedures p Right Total Hip Arthroplasty--Uncemented(Right) - Zain Chopra MD Surgeon Zain Chopra MD Micro Computer Specialist [facility] Estimated Blood Loss 100 Findings Consistent with Post-Op Diagnosis
--- NOTE | 2021-07-14 08:34 | Operative Report ---
Post Operative Report Pre & Post Diagnosis Operation Date: 07/14/21 07:00 Pre-Op Diagnosis: Right Hip Degenerative Joint Disease Post-Op Diagnosis: Right Hip Degenerative Joint Disease I identified the patient and participated in the time-out.: Yes Procedure Operation Date: 07/14/21 07:00 Actual Procedures p Right Total Hip Arthroplasty--Uncemented(Right) - Zain Chopra MD Surgeon RAINER Chopra MD Toe Puller leonardo Estimated Blood Loss 100 Findings Consistent with Post-Op Diagnosis Specimens see operative report Drains none Complications none Disposition Accompanied Patient To Recovery: Yes Indications This 71 year old female presented to the office with complaints of persisting right hip pain. She had tried conservative care measures without improvement. She elected to proceed with surgical intervention after being educated about potential risks and outcomes. Preoperative imaging was obtained. Description of Procedure Patient was administered a spinal anesthetic and then taken to the operating room where she was given sedation. Patient was prepped and draped in the usual sterile fashion. Please see Dr. Chopra's operative report for specifics of the procedure. I was present for the entire case from initial patient positioning through final wound closure. Assistance was provided in tissue retraction, hemostasis, trial implant placement, final implant placement, and final wound closure. Patient was taken to the recovery room in satisfactory condition. I attest to the content of the Intraoperative Record and any orders documented therein. Any exceptions are noted below.
--- NOTE | 2021-07-14 08:44 | Operative Report (OR) ---
DATE OF SURGERY: 07/14/2021. SURGEON: Zain Chopra MD. ENGRAVER WOOD: Peter Ingram PA-C. No resident or fellow available. PREOPERATIVE DIAGNOSIS: Osteoarthritis, right hip. POSTOPERATIVE DIAGNOSIS: Osteoarthritis, right hip. OPERATION PERFORMED: Noncemented right total hip replacement. SUMMARY OF IMPLANTS: A DePuy implant acetabular shell sector cup 48 hole eliminator, 25 x 6.5 screw, 32 x 48 neutral liner, 1 high offset Tri-Lock stem 32+1 ceramic head. ESTIMATED BLOOD LOSS: 100 mL. CRYSTALLOID: Per anesthesia. PATHOLOGY: Pending on bone. PERIOPERATIVE SITUATION: Medically cleared female with intractable hip pain, has failed conservative management for years. At this point in time, wants to proceed with surgical treatment. DESCRIPTION OF PROCEDURE: The patient was appropriately identified, site verified, consent verified. Antibiotics confirmed as being given. The right lower extremity was prepped and draped in usual ro utine fashion. Consent verified. All risks and consequences identified to the patient in advance. She states she understands. Once it was prepped and draped in usual routine fashion in right lateral decubitus position, a posterior approach to the hip was made through about an 8-10 cm incision. Ful l-thickness flaps raised. IT band identified and split appropriately. The short external rotators we re then identified and released. The sciatic nerve was palpated, but not dissected. Appropriate ret ractors placed with care taken to protect the nerves. Once the short external rotators were released , the capsule was then T'd. Hip was dislocated. The femoral neck resected. The anterior capsule was then released with the electrocautery of femur and then excellent exposure o btained. The acetabulum was very retroverted. Serial reaming was then carried up to a 48 after the labrum and soft tissue about the cup were excised. The cup was then impacted into position. Anterio r and anterior-inferior osteophytes were then resected. The cup was very stable. A 6.5 x 25 screw w as placed with excellent purchase. The finger was placed posteriorly in the sciatic notch and no scr ew was felt. The wound was then irrigated. The trial liner seated. The femur was then flexed and internally rota adniel, and serial broaching carried up to a size 1 with a trial reduction carried out with a +1 head be ing very appropriate. Hip was stable in all planes. Leg lengths were excellent. The hip was then d islocated, remaining trial elements were then removed. The wound irrigated with Betadine Pulsavac, t he hole eliminator seated, permanent liner seated, permanent head and stem seated and then the hip wa s checked one final time and then it was stable in all planes. Leg lengths were excellent. The woun d was then closed using #2 Vicryl for the capsule for the short external rotators and the quadratus f emoris for the IT band. The orthomix was then injected, deep fat closed with #1 Vicryl and a superfi cial fat closed with 2-0 Vicryl and stainless steel clips for skin. Appropriate dressing applied. T he patient was transferred to the recovery room in satisfactory condition, having tolerated the proce dure well. EBL was 100 mL or less. CRYSTALLOID: Per anesthesia. PATHOLOGY: Pending on bone. IMPLANTS: As noted above. DVT prophylaxis with Coumadin. Job ID: [id number]
--- NOTE | 2021-07-14 08:55 | XRay Report ---
XR pelvis 1-2V routine CLINICAL HISTORY: S/P R SUSAN COMPARISON: Pelvis and hip radiographs March 29, 2021. FINDINGS: Alignment of the total right hip arthroplasty is anatomic. No periprosthetic fracture or u nexpected radiopaque foreign bodies are present. There are skin geoff. Left hip osteoarthritis is n oted. IMPRESSION: Expected findings following total right hip arthroplasty. ACT 112: Negative or not required by law. Electronically signed by: Saad Buck M.D. 07/14/2021 8:54 AM
--- NOTE | 2021-07-14 09:00 | Anesthesiology Progress Note ---
Date of Service July 14, 2021 Anesthesia Post Procedure Vital Signs Vital Signs: Temp Pulse Pulse Resp BP Pulse Ox 07/14/21 08:50 43 L 20 138/63 100 07/14/21 08:40 58 L 16 118/68 100 07/14/21 08:33 36.9 C 57 L 20 115/56 L 100 07/14/21 05:44 36.8 C 53 L 20 145/74 H 99 Pain Intensity Right Hip: Pain Intensity: 3 Transfer of Care Handoff Completed per policy Notes Mental Status: alert / awake / arousable and participated in evaluation Patient Amnestic to Procedure: Yes Nausea / Vomiting: adequately controlled Pain: adequately controlled Airway Patency, RR, SpO2: stable & adequate BP & HR: stable & adequate Hydration State: stable & adequate Neuraxial Anesthesia: was administered and sensory block is resolving Anesthetic Complications: no major complications apparent and Pt Satisfied with anesthetic care
[2021-07-14] MEDS ORDERED: SODIUM CHLORIDE 0.9% 1000ML 1,000 ML IV SCH (10:08)
[2021-07-14] MEDS ORDERED: ALUMINUM/MAGNESIUM SUSP 30 ML UDC PO PRN (10:08)
[2021-07-14] MEDS ORDERED: bisacodyL 10 MG SUPP PR PRN (10:08)
[2021-07-14] MEDS ORDERED: MAGNESIUM HYDROXIDE SUSP 30 ML UDC PO PRN (10:08)
[2021-07-14] MEDS ORDERED: NALOXONE HCL 0.4 MG/1 ML VIAL/CARP IV PRN (10:08)
[2021-07-14] MEDS ORDERED: HYDROmorphone INJ 0.5 MG/0.5 ML SYR IV PRN (10:08)
[2021-07-14] MEDS ORDERED: METOCLOPRAMIDE HCL INJ 5 MG/ML 2 ML VIAL IV PRN (10:08)
[2021-07-14] MEDS ORDERED: diphenhydrAMINE 50 MG/ML VIAL IV PRN (10:08)
--- NOTE | 2021-07-14 11:04 | Progress Notes ---
DATE OF SERVICE: 07/14/2021 Postop check status post right total hip replacement. The patient is resting comfortably in bed, sti ll in PACU, but awaiting a bed up stairs. She is ready to be transferred. ____ a little bit slow this morning. She denies any chest pain, shortness of breath, fever, chills, nausea, vomiting or headache. Vital signs are stable. She is afebrile. Wound dressing clean, dry and intact. Hip located. Postoperative x-rays look excellent. Femoral sciatic nerve function is excellent. Calves nontender. ASSESSMENT: Doing well. Continue with care pathway. Discharge home tomorrow after assessment with physical therapy, occupational therapy and case management. Job ID: [id number]
--- NOTE | 2021-07-14 11:23 | Discharge Summary (DS) ---
DATE OF ADMISSION: 07/14/2021 DATE OF POTENTIAL DISCHARGE: 07/15/2021. CHIEF COMPLAINT: Right hip pain. HISTORY OF PRESENT ILLNESS: The patient underwent elective right total hip replacement. Hospital course to date has been uneventful. PREADMISSION MEDICATIONS: Include carbidopa, timolol, dorzolamide eye drops, fexofenadine, thyroid r eplacement, magnesium, multivitamins, ____, ____ Forte, turmeric, multiple vitamins. ALLERGIES: INCLUDE MULTIPLE ANTIBIOTICS, WHICH ARE MINIMAL REACTIONS, ITCHY, SOME MINOR REDNESS; frannie erates Ancef. PAST MEDICAL HISTORY: Remarkable for asthma, glaucoma, history of COVID on 05/31/2021, history of mi tral valve prolapse, hypothyroidism, osteopenia, restless legs syndrome, sensorineural loss in both e ars, vertigo, history of tubal ligation, history of carpal tunnel, history of cataract surgery, histo ry of colonoscopy, history of myomectomy. REVIEW OF SYSTEMS: Noncontributory. Denies chest pain, shortness of breath, fever, chills, nausea, vomiting or headache. ASSESSMENT: Doing well status post right total hip replacement. Continue with care pathway. Discha edd home tomorrow if she does well overnight. Job ID: [id number]
[2021-07-14] MEDS ORDERED: oxyCODONE HCL IR 5 MG TAB (IMMEDIATE RELEASE) ONE (11:51)
[2021-07-14] MEDS: oxyCODONE HCL IR 5 MG TAB (IMMEDIATE RELEASE) PO PRN ×2 (11:55→19:44)
[2021-07-14] MEDS: KETOROLAC TROMETHAMINE 15 MG/ML VIAL IV SCH ×2 (13:00→17:27)
[2021-07-14] MEDS: MULTIVITAMIN TAB PO SCH (13:24)
[2021-07-14] MEDS: DOCUSATE SODIUM 100 MG CAP PO SCH ×2 (13:24→20:20)
[2021-07-14] MEDS ORDERED: ORTHO WARFARIN NOMOGRAM SCH (14:00)
[2021-07-14] MEDS ORDERED: TRANEXAMIC ACID / 0.7% NACL 1,000 MG/100 ML BAG IV SCH (14:45)
[2021-07-14] MEDS: DORZOLAMIDE/TIMOLOL 22.3/6.8MG/ML 10 ML BTL OP SCH (15:00)
[2021-07-14] MEDS: ceFAZolin 2000MG 2,000 MG/15 ML SYR IV SCH (15:00)
[2021-07-14] MEDS: ACETAMINOPHEN 500 MG TAB PO SCH ×2 (15:01→21:03)
[2021-07-14] MEDS: CALCIUM 600MG + VIT D 400 IU TAB PO SCH ×2 (15:01→20:20)
[2021-07-14] MEDS: LEVOTHYROXINE SODIUM 50 MCG TABLET PO SCH (15:01)
[2021-07-14] MEDS ORDERED: WARFARIN SOD 5 MG TAB PO ONE (16:00)
[2021-07-14] MEDS: FERROUS GLUCONATE 324 MG TAB PO SCH (16:29)
[2021-07-14 16:30] LABS: Prothrombin Time 11.1 Seconds (9.0-12.0)
[2021-07-14] MEDS ORDERED: MAGNESIUM OXIDE 400 MG TAB PO SCH (16:30)
[2021-07-14] MEDS ORDERED: COSOPT PO SCH (16:30)
[2021-07-14] MEDS: ASCORBIC ACID 500 MG TAB PO SCH (16:30)
[2021-07-14] MEDS ORDERED: FEXOFENADINE HCL 180 MG TAB PO SCH (16:30)
[2021-07-14] MEDS ORDERED: VANCOMYCIN HCL 750 MG in SODIUM CHLORIDE 0.9% 250 ML IV SCH (18:45)
[2021-07-14] MEDS ORDERED: CARBIDOPA/LEVODOP 10/100MG TAB PO SCH (21:00)
[2021-07-14] MEDS ORDERED: SENNA 8.6 MG TAB PO SCH (21:00)
[2021-07-15] MEDS: ceFAZolin 2000MG 2,000 MG/15 ML SYR IV SCH (00:08)
[2021-07-15] MEDS: KETOROLAC TROMETHAMINE 15 MG/ML VIAL IV SCH ×2 (00:09→05:16)
[2021-07-15] MEDS: LEVOTHYROXINE SODIUM 50 MCG TABLET PO SCH (05:17)
[2021-07-15] MEDS: ACETAMINOPHEN 500 MG TAB PO SCH (05:17)
--- NOTE | 2021-07-15 06:51 | Progress Notes ---
SUBJECTIVE: Postop check status post right total hip replacement. Doing reasonably well. She had a vasovagal episode the first time she got up, but has got up since and has done well. She needs to dangle before she gets up. She responds sensitively to pain medication. She should not be medicated immediately before getting up. OBJECTIVE: Vital signs are stable. She is afebrile. Neurovascular check femoral sciatic nerve is normal. Hip is located, supple, pain free, passive range of motion, pain free axial loading by me. Only gets pain when activates muscles, which is not unusual. ASSESSMENT AND PLAN: Doing well and needs to be more confident, get her up with PT, OT, and discharge later today. Coumadin dose before leaving. Job ID: [id number] MTDD
[2021-07-15 07:12] LABS: Basophils # (auto) 0.01 K/uL (0-0.2); Basophils % (auto) 0.1 %; Eosinophils # (auto) 0.04 K/uL (0-0.5); Eosinophils % (auto) 0.4 %; Hemoglobin 10.8 g/dL (12.0-16.0); Immature Granulocytes # (auto) 0.02 K/uL (0.00-0.02); Immature Granulocytes % (auto) 0.2 %; Lymphocytes % (auto) 6.7 %; Mean Corpuscular Hemoglobin 29.5 pg (25-34); Mean Corpuscular Hgb Conc 33.8 g/dL (32-36); Mean Corpuscular Volume 87.4 fL (80-100); Mean Platelet Volume 10.3 fL (7.4-10.4); Monocytes # (auto) 0.82 K/uL (0.11-0.59); Monocytes % (auto) 9.2 %; Neutrophils # (auto) 7.47 K/uL (1.4-6.5); Neutrophils % (auto) 83.4 %; Platelet Count 243 K/uL (130-400); RDW Coefficient of Variation 13.7 % (11.5-14.5); RDW Standard Deviation 44.1 fL (36.4-46.3); Red Blood Count 3.66 M/uL (4.2-5.4); White Blood Count 8.96 K/uL (4.8-10.8)
[2021-07-15 07:31] LABS: INR 1.1 (0.9-1.1); Prothrombin Time 11.3 Seconds (9.0-12.0)
[2021-07-15 07:37] LABS: BUN Creatinine Ratio 19.4 (10-20); Calcium 8.9 mg/dl (8.5-10.1); Creatinine Clr Calc Pharmacy 61.5 ml/min; Est GFR (African American) 106.6 ml/min; Potassium 3.9 mmol/L (3.5-5.1)
[2021-07-15] MEDS ORDERED: dexAMETHasone 10 MG in SYRINGE 0 ML IV SCH (08:00)
[2021-07-15] MEDS: CALCIUM 600MG + VIT D 400 IU TAB PO SCH (08:48)
[2021-07-15] MEDS: MULTIVITAMIN TAB PO SCH (08:48)
[2021-07-15] MEDS: FERROUS GLUCONATE 324 MG TAB PO SCH (08:48)
[2021-07-15] MEDS: ASCORBIC ACID 500 MG TAB PO SCH (08:48)
[2021-07-15] MEDS: DORZOLAMIDE/TIMOLOL 22.3/6.8MG/ML 10 ML BTL OP SCH (08:49)
[2021-07-15] MEDS: DOCUSATE SODIUM 100 MG CAP PO SCH (08:49)
[2021-07-15] MEDS: oxyCODONE HCL IR 5 MG TAB (IMMEDIATE RELEASE) PO PRN (08:52)
--- NOTE | 2021-07-15 09:19 | Orthopedic Progress Note ---
Date of Service July 15, 2021 Assessment & Plan (1) Status post right hip replacement: Plan: Patient's dressings were changed by me. New pressure dressing was applied. She will leave this on until Monday, and then it may be changed as needed for soiling. Continue her Coumadin daily. Please have her blood rechecked on Monday. Follow-up in the office tomorrow to start PT. She will be doing outpatient PT. Use the walker as needed for stability. Follow-up in the office in 2 weeks for suture removal as scheduled. Prescriptions for Percocet and Coumadin have been sent to her pharmacy. Admission and Anticipated Discharge Date Admission Date: July 14, 2021 Subjective 71-year-old female was seen in her room this morning. She states she did not rest very well last night. She did have some pain earlier this morning, but it is improving after taking Percocet. She denies any chest pain, shortness of breath, nausea, vomiting, or abdominal pain. She denies any numbness or tingling. She feels she is ready to go home today. No other complaints. Review of Systems Review of Systems: unchanged from yesterday Physical Exam Physical Exam: General: Well-developed, well-nourished, elderly white female, in no acute distress. Sitting on the bed. Alert and oriented. Conversive. Skin: Warm and dry with good turgor. No rashes or lesions. No ecchymosis or erythema. No significant effusion. Postsurgical dressings are in place on the right hip. Upon removal, she has scant dried drainage on the inner dressings. No active bleeding. [place] are intact. Wound edges are well approximated. Musculoskeletal: Patient has intact motor function of the hip, knee, and ankle. She is able to raise her leg. She has been ambulatory in the room. No pain with logrolling of the hip. Neurologic: Gross sensation is intact across the right leg by soft touch. Peripheral pulses are 2+. Results & Data ([facility]) Vital Signs (Past 12 Hours) Vital Signs Temp Pulse Resp BP Pulse Ox 07/15/21 07:31 37.2 C 60 14 101/57 L 98 07/15/21 03:26 36.7 C 61 16 96/57 L 97 07/14/21 23:05 37.1 C 78 15 102/58 L 96 Laboratory Results WBCs this morning are 8.96. Hemoglobin 10.8, hematocrit 32.0. INR is 1.1. PRP is entirely unremarkable. Glucose 104. BUN 12, creatinine 0.62.
[2021-07-15] MEDS ORDERED: WARFARIN SOD 5 MG TAB PO ONE (16:00)
== END 2021-07-15 12:36 | disposition home or self-care (01) | DRG 470 ==
LOC: ASU 05:16 → INTOOBSV 08:43 → PACUINP 08:43 → 3E 14:52
DX: M16.11 Unilateral primary osteoarthritis, right hip; Z79.890 Hormone replacement therapy; Z91.048 Other nonmedicinal substance allergy status; Z88.2 Allergy status to sulfonamides; Z79.899 Other long term (current) drug therapy; Z88.1 Allergy status to other antibiotic agents; Z88.8 Allergy status to other drugs, medicaments and biological substances; Z88.0 Allergy status to penicillin; Z86.16 Personal history of COVID-19

== ENCOUNTER 2022-07-19 05:18 | Observation (INO) ==
--- NOTE | 2022-07-18 11:22 | Anesthesiology Consultation ---
Date of Service July 18, 2022 Assessment & Plan (1) Encounter for pre-operative examination: Chart Review Chart Review: Acceptable Risk for Surgery and Patient NOT seen in Pre Admission Testing Pt requiring admission post operatively. Plan for recheck with COVAPRIL GARCIA due to possibility that patient may have a roommate. OR aware. [place] order placed - Unable to determine OPJ status- patient did not come through PAT -COVID screening: Per PAT nursing assessment on 07/18/22. No known COVID-19 positive contacts or current COVID-19 related symptoms. Travel screen negative. Patient vaccinated for Covid. At surgeon discretion if preop Covid testing being done. Pt seen by PCP 07/08/22= Seen for preop clearance of left total hip. Patient's METS score is at least 4. This is a class I (0 point) on reviewed cardiac risk index so there is about 0.4-0.5% risk of cardiac complication... For an intermediate procedure, patient is at acceptable risk. We will check BMP and EKG. May continue Synthroid and Sinemet with small sip of water day of surgery. Stop supplements 1 week before surgery. Patient will also discussed with anesthesia as well. Hypothyroidstable. Restless leg syndromestable. Asthmachronic/controlled. Hyperlipidemiano need for statin. Osteopeniachronicno need for medication yet. Right SUSAN 07/14/21= Done under SAB at L4-5 with two attempts History Surgery Operation Date: 07/19/22 07:00 Proposed Procedures p Left Total Hip Arthroplasty - Zain Chopra MD Height/Weight Height: 5 ft Weight: 52.163 kg Allergies Allergy/AdvReac Type Severity Reaction Status Date / Time amoxicillin Allergy Intermediate Itchy Verified 07/18/22 10:20 benzalkonium chloride Allergy Intermediate Red Verified 07/18/22 10:20 patches around eyes bimatoprost Allergy Intermediate Red Verified 07/18/22 10:20 patches around eyes Cipro Allergy Intermediate ITCHY Verified 11/01/16 06:46 ciprofloxacin Allergy Intermediate Itchy Verified 07/18/22 10:20 Penicillins Allergy Intermediate Itchy Verified 07/18/22 10:20 pollen extracts Allergy Intermediate sneezing, Verified 07/18/22 10:21 itching timolol Allergy Intermediate Red Verified 07/18/22 10:20 patches around eyes animal dander Allergy Mild Itching Verified 07/18/22 10:20 and redness at contact site brimonidine Allergy Mild Red Verified 07/18/22 10:20 patches around eyes Sulfa (Sulfonamide AdvReac Intermediate Joint Pain Verified 07/18/22 10:20 Antibiotics) Medications Home Medications Medication Instructions Recorded Confirmed Last Taken L.acid,cheyenne-B.bifid,long 70 mg (5 1 tab PO QDD 04/17/19 07/18/22 07/13/21 20:00 billion cell) tablet,delayed release (Probiotic Colon Support) carbidopa 10 mg-levodopa 100 mg 1 tab PO HS 04/17/19 07/18/22 07/13/21 23:30 tablet (Sinemet) dorzolamide-timolol (PF) 2 %-0.5 % 1 drp ophthalmic (eye) BID 04/17/19 07/18/22 07/14/21 04:30 eye drops in a dropperette (Cosopt (PF)) fexofenadine 180 mg tablet 180 mg PO QDD 04/17/19 07/18/22 07/13/21 20:00 levothyroxine 50 mcg capsule 50 mcg PO QAM 04/17/19 07/18/22 07/14/21 04:30 magnesium 200 mg tablet 200 mg PO QDD 04/17/19 07/18/22 07/13/21 20:00 multivit with 2 tab PO QDD 04/17/19 07/18/22 07/13/21 20:00 hadssyiw-pljt-ZD-lutein 8 mg iron-400 mcg-300 mcg tablet (Multivitamin Women 50 Plus) turmeric root extract 500 mg 500 mg PO BID 06/28/21 07/18/22 07/11/21 capsule acetaminophen 500 mg capsule 500 mg PO Q6H PRN Pain 07/18/22 07/18/22 Unknown calcium citrate 315 mg 1 tab PO QDD 07/18/22 07/18/22 Unknown calcium-vitamin D3 6.25 mcg (250 unit) tablet (Citracal + Vitamin D Maximum) glutamine (bulk) (L-Glutamine 1 ea miscellaneous QDD 07/18/22 07/18/22 Unknown powder) ibuprofen 200 mg tablet (Advil) 200 mg PO Q6H PRN Pain 07/18/22 07/18/22 Unknown Past Medical History Medical History Asthma well controlled currently Glaucoma History of COVID-19 05/31/21 (positive home test and PCR at [facility] test positive 05/31/21) > mild cough, sore throat, BHATT, fatigue > resolved Hx of mitral valve prolapse Noted on remote echo. Per patient, f/u echo done 10+ years ago did not show evidence of valvular disease Hypothyroidism Osteopenia Restless leg syndrome Sensorineural hearing loss of both ears Vertigo hx Past Family History Family History Brother Family history of diabetes mellitus Family/Other Family history of diabetes mellitus Aunt Breast cancer Grandmother (Paternal) Breast cancer Other Allergies Asthma Dementia Hearing loss Heart disease Hypertension No family history of adverse response to anesthesia No family history of bleeding disorder Denies family history of Ovarian cancer Colorectal cancer Past Surgical History Surgical History H/O tubal ligation History of carpal tunnel surgery of right wrist History of cataract surgery R/L History of colonoscopy History of surgery on arm REMOVAL CYST LEFT ARM History of tooth extraction S/P myomectomy S/P total hip arthroplasty Right (06/2021) Social History Smoking Status: Never smoker Do You Dip or Chew Tobacco: No Hx Alcohol Use: Yes Alcohol type: beer and wine alcohol intake frequency: a few times a month Hx Substance Use: No substance use type: does not use Lab Results Anesthesia Preop Results Results Anesthesia Widget: WBC 6.35 K/ul (4.8-10.8) 07/11/22 Hgb 12.8 g/dl (12.0-16.0) 07/11/22 Hct 38.9 % (37.0-47.0) 07/11/22 Plt 285 K/uL (130-400) 07/11/22 PT 10.7 Seconds (9.0-12.0) 07/11/22 PTT 32.5 Seconds (21.0-31.0) H 07/11/22 INR 1.0 (0.9-1.1) 07/11/22 Urine Color Yellow 07/11/22 Urine Appearance Clear (Clear) 07/11/22 Urine pH 7.0 (4.5-7.5) 07/11/22 Urine Specific [place] 1.011 (1.000-1.030) 07/11/22 Urine Protein Negative (Negative) 07/11/22 Urine Glucose (UA) Negative (Negative) 07/11/22 Urine Ketones Negative (Negative) 07/11/22 Urine Blood Negative (Negative) 07/11/22 Urine Nitrite Negative (Negative) 07/11/22 Urine Bilirubin Negative (Negative) 07/11/22 Urine Urobilinogen Negative (Negative) 07/11/22 Urine Leukocyte Esterase Negative (Negative) 07/11/22 Blood Type A Positive 07/11/22 Antibody Screen POSITIVE A 07/11/22 Testing Laboratory Results Spoke with Blood Bank on 07/18/22- blood bank aware of positive antibodies- no further testing needed 07/08/22= SODIUM: 141 POTASSIUM: 4.4 CHLORIDE: 104 CO2: 25 BUN: 25 CREATININE: 0.72 GLUCOSE: 93 Electrocardiogram Date: 07/11/22 Findings: + SB @ (53bpm ) Posslbe left atrial enlargement Chest X-Ray Date: 07/11/22 Findings: + NAD
[~2022-07-19 05:18] MED LIST changes: -ACAI500C2 PO; -B-COTAB18 PO; -BIOT1CAP8 PO; -CALC-51 PO; -CARB25TA2 PO; -DORZ1SOL6 OPB; -ESTR1CRE PV; -FERR1TAB23 PO; -FEXO1TAB49 PO; -FLUT0.15 NAE; -GLUCPOW41 PO; -LACTCAP3 PO; -LEVO50TA6 PO; -MAGN250T22 PO; -MULT-506 PO; -OMEGCAP2 PO; +ROPIVACAINE 0.5% HCL/PF 150 MG, BUPIVACAINE 0.75% MPF 20 ML, EPINEPHrine 0.15 MG, Ketor... INFIL SCH; -TURM1CAP4 PO; -VITACAP26 PO; -VITAMIN D PO
--- NOTE | 2022-07-19 05:26 | History & Physical Bridge Note ---
Date of Service July 19, 2022 History & Physical Bridge Note I have examined the patient, reviewed the History & Physical and in the interval since the performance of the History & Physical I have noted the following changes of clinical significance:consent and site verified. no changes noted
[2022-07-19] MEDS ORDERED: ceFAZolin 2000MG 2,000 MG/15 ML SYR IV SCH (06:00)
[2022-07-19] MEDS ORDERED: ROPIVACAINE 0.5% HCL/PF 150 MG, BUPIVACAINE 0.75% MPF 20 ML, EPINEPHrine 0.15 MG, Ketor... INFIL SCH (06:00)
[2022-07-19] MEDS ORDERED: LR 500ML BOLUS, THEN 15ML/HR IV SCH (06:00)
[2022-07-19] MEDS ORDERED: LR 60ML/HR IV SCH (06:00)
[2022-07-19] MEDS ORDERED: TRANEXAMIC ACID 1,000 MG **IV Pre-op IV SCH (06:00)
[2022-07-19] MEDS ORDERED: BUPIVACAINE 0.5 % 5 MG/1 ML PF 10ML VIAL ONE (06:16)
--- NOTE | 2022-07-19 06:19 | History & Physical Bridge Note ---
Date of Service July 19, 2022 History & Physical Bridge Note I have examined the patient, reviewed the History & Physical and in the interval since the performance of the History & Physical I have noted the following changes of clinical significance: no changes noted
[2022-07-19] MEDS ORDERED: MIDAZOLAM HCL 1 MG/ML 2ML VIAL ONE (06:39)
[2022-07-19] MEDS ORDERED: ORTHO JOINT ANESTHETIC ONE (06:39)
[2022-07-19] MEDS ORDERED: HYDROmorphone INJ 1 MG/ML SYRINGE IV PRN (06:40)
[2022-07-19] MEDS ORDERED: ONDANSETRON INJ 2 MG/ML 2 ML VIAL IV PRN ×2 (06:40→10:18)
[2022-07-19] MEDS ORDERED: ePHEDrine sulfate 50 MG/ML AMP IV PRN (06:40)
[2022-07-19] MEDS ORDERED: KETOROLAC 30 MG/ML VIAL IV PRN (06:40)
[2022-07-19] MEDS ORDERED: ATROPINE SULFATE 0.1 MG/ML 10ML SYR IV PRN (06:40)
[2022-07-19] MEDS ORDERED: PROPOFOL IV EMULSION 10 MG/ML 20 ML VIAL IV ONE (07:06)
[2022-07-19] MEDS ORDERED: LIDOCAINE 2% 2 ML VIAL/AMP(20MG/ML) INFIL ONE (07:06)
[2022-07-19] MEDS ORDERED: ONDANSETRON INJ 2 MG/ML 2 ML VIAL ONE (07:06)
--- NOTE | 2022-07-19 08:16 | Post Operative Brief Note ---
Immediate Post Op Note v1 Date of Surgery July 19, 2022 Pre & Post Diagnosis Operation Date: 07/19/22 07:00 <No data on this case meets the specified criteria> I identified the patient and participated in the time-out.: Yes Procedure Operation Date: 07/19/22 07:00 <No data on this case meets the specified criteria> Surgeon Zain Chopra MD Research Psychologist Kasie/Nataly Estimated Blood Loss 75 Findings Consistent with Post-Op Diagnosis severe djd with loose bodies
--- NOTE | 2022-07-19 08:21 | Operative Report ---
Post Operative Report Pre & Post Diagnosis Operation Date: 07/19/22 07:00 <No data on this case meets the specified criteria> I identified the patient and participated in the time-out.: Yes Procedure Operation Date: 07/19/22 07:00 <No data on this case meets the specified criteria> Surgeon Zain Chopra MD Farm Contractor Kasie/Nataly Estimated Blood Loss 75 Findings Consistent with Post-Op Diagnosis Severe DJD with multiple loose bodies Fluids See anesthesia report Specimens Pathology on bone Drains None Complications None Indications Severe disease Description of Procedure Patient appropriate bite site verify consent provide antibiotics for him to be given the right and left lower extremities were examined they are relatively equal. Patient was placed in a right lateral decubitus position left lower extremity prepped and draped usual clean fashion. Surgeon Nav Farm Contractor Kasie second Farm Contractor Nataly. Patient has severe disease with x-rays revealing end-stage disease. Procedure patient identified site verbally consented by antibiotics from his we given the left lower extremities prepped and draped in his routine fashion with the patient in the right lateral decubitus position. Posterior approach to the hip was then made. Sharp dissection carried through skin blunt dissection down to the fascia. Retractors were placed she was quite thin and the nerve was identified and protected. The short external rotators were released. The capsule was then teed. The hip was dislocated. The femoral neck was resected. Excellent exposure was obtained. There was multiple loose bodies in the joint including one large 1. These were all removed the labrum was excised serial reaming carried up to 48 and 48 cup impacted in the appropriate position with excellent rim fit was then secured with additional 6 x 20 screw with excellent purchase. The femur was then prepared with a gambling box person lateralizing rasp canal finder and serial broaching up to a size 1. Trial reduction was carried out with a +1 head. Leg lengths were equal and the hip was extremely stable. All trial implants were then removed. The wound was irrigated with Betadine Pulsavac the whole limb later seated the trial liner after trial liner was removed. The permanent liner was seated. The permanent head and stem were seated. The hip was then reduced. It was stable in all planes leg lengths were excellent. Wound was irrigated 1 final time with Betadine and Pulsavac and then the capsule was closed with #2 Vicryl short external rotators with the same stitch. The IT band with the same stitch. The superficial layer was closed with 2-0 Vicryl. The wound with standstill clips. Appropriate dressing applied. Summary of implant size 48 acetabular shell sector cup: Meter 20 mm long x6.5 cancellous bone screw 32x48 neutral liner 1 high offset Tri-Lock 32+1 ceramic head these are all DePuy implants. EBL was 75 cc or less. Crystalloid per anesthesia. DVT prophylaxis per protocol. Preop diagnosis osteoarthritis severe left hip postop diagnosis same operation formed is noncemented left total hip placement. I attest to the content of the Intraoperative Record and any orders documented therein. Any exceptions are noted below.
--- NOTE | 2022-07-19 08:26 | Operative Report ---
Post Operative Report Pre & Post Diagnosis Operation Date: 07/19/22 07:00 Pre-Op Diagnosis: Left Hip Degenerative Joint Disease Post-Op Diagnosis: Left Hip Degenerative Joint Disease I identified the patient and participated in the time-out.: Yes Procedure Operation Date: 07/19/22 07:00 Actual Procedures p Left Total Hip Arthroplasty, Uncemented(Left) - Zain Chopra MD Surgeon RAINER Chopra MD Corpsman Kasie/Nataly JAIN Estimated Blood Loss 75 Findings Consistent with Post-Op Diagnosis see operative report Specimens see operative report Drains none Complications none Disposition Accompanied Patient To Recovery: Yes Indications This 72 year old female presented to the office with complaints of persisting left hip pain. She had tried conservative care measures without improvement. She elected to proceed with surgical intervention after being educated about potential risks and outcomes. Preoperative imaging was obtained. She has a history of previous right total hip arthroplasty and has done very well with it. She elected to proceed with the same on the left. Description of Procedure Patient was administered a spinal anesthetic and then taken to the operating room where she was given sedation. She was prepped and draped in the usual sterile fashion. Please see Dr. Chopra's operative report for specifics of the procedure. I was present for the entire case from initial patient positioning through final wound closure. Assistance was provided in tissue retraction, hemostasis, trial implant placement, final implant placement, and final wound closure. The patient was taken to the recovery room in satisfactory condition. I attest to the content of the Intraoperative Record and any orders documented therein. Any exceptions are noted below.
--- NOTE | 2022-07-19 08:43 | Discharge Summary (DS) ---
DATE OF ADMISSION: 07/19/2022. DATE OF POTENTIAL DISCHARGE: 07/20/2022. CHIEF COMPLAINT: Left hip pain. HISTORY OF PRESENT ILLNESS: The patient is admitted for severe osteoarthritis of her left hip. She has had right hip replacement, has done well with that about 18 months ago. She understands risks an d consequences. She underwent left total hip replacement without event. REVIEW OF SYSTEMS: Reveals no chest pain, shortness of breath, fever, chills, nausea, vomiting or he adache. PREADMISSION MEDICATIONS: Include carbidopa/levodopa, clindamycin eyedrops, Michaela, Glutamine, thyr oid replacement, turmeric. ALLERGIES: INCLUDE ANIMALS, DUST, AMOXICILLIN, CIPRO, SULFA; ALL GIVE RASH. SOCIAL HISTORY: Reveals she does not smoke. Social alcohol, minimal. Denies any substance abuse. FAMILY HISTORY: Alzheimer's, arthritis, cancer, cardiovascular disease. IMMUNIZATIONS: Up to date. PAST MEDICAL/PAST SURGICAL HISTORY: Remarkable for skin biopsies, cataracts with surgery. Right hip replacement, thyroid disease, hyperlipidemia, palpitations, chronic sinusitis, history of soft tissu e mass on her elbow. ASSESSMENT: Status post left total hip replacement. Hospital course has been uneventful to date. I f she does well overnight, will be discharged tomorrow. DVT prophylaxis per protocol. Job ID: [id number]
--- NOTE | 2022-07-19 08:52 | Progress Notes ---
SUBJECTIVE: Postop check status post left total hip replacement. OBJECTIVE: The patient is resting comfortably. Denies chest pain, shortness of breath, fever, chills, nausea, vomiting, or headache. Wound dressing clean, dry, and intact. Leg lengths were equal. Wound dressing clean and dry. X-ray pending. ASSESSMENT AND PLAN: Doing well status post left total hip replacement. Advised that I talked to her daughter. X-ray is pending. We will likely get on her feet THERESE. Postural precautions. DVT prophylaxis per protocol. Job ID: [id number] Xray post op looks excellent. MTDD
--- NOTE | 2022-07-19 08:54 | XRay Report ---
AP PELVIS History: Left total hip arthroplasty. Degenerative arthritis. Postop. FINDINGS: The patient is status post a left total hip arthroplasty. The hardware is intact. No fractu re or dislocation. Skin geoff are in place. Evidence for prior right total hip arthroplasty. IMPRESSION: Left total hip arthroplasty. No evidence for hardware complication. ACT 112: Negative or not required by law. Electronically signed by: Cam Zeng M.D. 07/19/2022 8:53 AM
[2022-07-19] MEDS ORDERED: diphenhydrAMINE 50 MG/ML VIAL IV PRN (10:18)
[2022-07-19] MEDS ORDERED: NALOXONE HCL 0.4 MG/1 ML VIAL/CARP IV PRN (10:18)
[2022-07-19] MEDS ORDERED: SODIUM CHLORIDE 0.9% 1000ML 1,000 ML IV SCH (10:18)
[2022-07-19] MEDS ORDERED: HYDROmorphone INJ 0.5 MG/0.5 ML SYR IV PRN (10:18)
[2022-07-19] MEDS ORDERED: VANCOMYCIN CONSULT ACTIVE PRN (10:18)
[2022-07-19] MEDS ORDERED: bisacodyL 10 MG SUPP PR PRN (10:18)
[2022-07-19] MEDS ORDERED: METOCLOPRAMIDE HCL INJ 5 MG/ML 2 ML VIAL IV PRN (10:18)
[2022-07-19] MEDS ORDERED: ALUMINUM/MAGNESIUM SUSP 30 ML UDC PO PRN (10:18)
[2022-07-19] MEDS ORDERED: MAGNESIUM HYDROXIDE SUSP 30 ML UDC PO PRN (10:18)
[2022-07-19] MEDS ORDERED: KETOROLAC 30 MG/ML VIAL ONE (10:22)
[2022-07-19] MEDS: KETOROLAC TROMETHAMINE 15 MG/ML VIAL IV SCH ×3 (10:23→21:35)
[2022-07-19] MEDS: DOCUSATE SODIUM 100 MG CAP PO SCH ×2 (11:09→21:35)
[2022-07-19] MEDS: MULTIVITAMIN TAB PO SCH (11:10)
[2022-07-19] MEDS: DORZOLAMIDE/TIMOLOL 22.3/6.8MG/ML 10 ML BTL OP SCH ×3 (11:10→21:35)
[2022-07-19] MEDS: LEVOTHYROXINE SODIUM 50 MCG TABLET PO SCH (11:12)
[2022-07-19] MEDS ORDERED: VANCOMYCIN HCL 750 MG in SODIUM CHLORIDE 0.9% 500 ML IV ONE (11:15)
[2022-07-19] MEDS ORDERED: VANCOMYCIN HCL 750 MG in SODIUM CHLORIDE 0.9% 250 ML IV SCH (11:30)
--- NOTE | 2022-07-19 11:30 | Anesthesiology Progress Note ---
Date of Service July 19, 2022 Anesthesia Post Procedure Vital Signs Vital Signs: Temp Pulse Resp BP Pulse Ox O2 Del Method O2 Flow Rate 07/19/22 11:00 45 L 18 111/65 96 Room Air 07/19/22 10:45 47 L 16 120/62 96 Room Air 07/19/22 10:30 44 L 14 127/39 L 97 Room Air 07/19/22 10:15 44 L 16 127/65 96 Room Air 07/19/22 10:00 45 L 14 127/62 95 Room Air 07/19/22 09:50 36.3 C L 43 L 14 124/62 98 Room Air 07/19/22 09:40 58 L 16 121/49 L 96 Room Air 07/19/22 09:30 44 L 12 129/57 L 95 Room Air 07/19/22 09:20 42 L 12 124/54 L 99 Room Air 07/19/22 09:10 42 L 13 118/58 L 98 Room Air 07/19/22 09:00 48 L 12 102/52 L 98 Room Air 07/19/22 08:50 45 L 14 106/59 L 99 Room Air 07/19/22 08:40 51 L 12 121/49 L 96 Room Air 07/19/22 08:30 49 L 14 106/58 L 100 Room Air 07/19/22 08:23 36 C L 62 16 104/61 97 Oxymask 6 Pain Intensity Left Hip: Pain Intensity: 3 Transfer of Care Handoff Completed per policy Notes Mental Status: alert / awake / arousable Patient Amnestic to Procedure: Yes Nausea / Vomiting: adequately controlled Pain: adequately controlled Airway Patency, RR, SpO2: stable & adequate BP & HR: stable & adequate Hydration State: stable & adequate Anesthetic Complications: no major complications apparent
[2022-07-19] MEDS: oxyCODONE HCL IR 5 MG TAB (IMMEDIATE RELEASE) PO PRN ×2 (13:14→20:03)
[2022-07-19] MEDS ORDERED: ORTHO WARFARIN NOMOGRAM SCH (14:00)
--- NOTE | 2022-07-19 14:00 | Progress Notes ---
SUBJECTIVE: Postop check status post left total hip replacement. The patient is sitting up in bed. Had lunch, had no issues with nausea, vomiting, chest pain, shortness of breath, fever or chills. OBJECTIVE: VITAL SIGNS: Stable. She is afebrile. Neurovascular check, femoral sciatic nerve is excellent. Wound dressing clean, dry and intact. Postop x-rays look excellent. ASSESSMENT: Doing well. Continue with care pathway. Discontinue IV fluid, saline lock used for meds only. DVT prophylaxis per protocol. Get out of bed and move. Job ID: [id number]
[2022-07-19] MEDS ORDERED: TRANEXAMIC ACID / 0.7% NACL 1,000 MG/100 ML BAG IV SCH (14:30)
[2022-07-19] MEDS: ceFAZolin 2000MG 2,000 MG/15 ML SYR IV SCH ×2 (15:58→22:12)
[2022-07-19] MEDS: ACETAMINOPHEN 500 MG TAB PO SCH ×2 (15:58→21:34)
[2022-07-19] MEDS ORDERED: WARFARIN SOD 5 MG TAB PO ONE (16:00)
[2022-07-19] MEDS: ASCORBIC ACID 500 MG TAB PO SCH (16:01)
[2022-07-19] MEDS: FERROUS GLUCONATE 324 MG TAB PO SCH (16:01)
[2022-07-19] MEDS ORDERED: MAGNESIUM OXIDE 400 MG TAB PO SCH (16:30)
[2022-07-19] MEDS ORDERED: FEXOFENADINE HCL 180 MG TAB PO SCH (16:30)
[2022-07-19] MEDS ORDERED: CARBIDOPA/LEVODOP 10/100MG TAB PO SCH (21:00)
[2022-07-19] MEDS ORDERED: SENNA 8.6 MG TAB PO SCH (21:00)
[2022-07-20] MEDS: KETOROLAC TROMETHAMINE 15 MG/ML VIAL IV SCH (05:01)
[2022-07-20] MEDS: ACETAMINOPHEN 500 MG TAB PO SCH (05:59)
[2022-07-20] MEDS: LEVOTHYROXINE SODIUM 50 MCG TABLET PO SCH (06:00)
[2022-07-20] MEDS: oxyCODONE HCL IR 5 MG TAB (IMMEDIATE RELEASE) PO PRN (06:00)
[2022-07-20] MEDS: DOCUSATE SODIUM 100 MG CAP PO SCH (07:13)
[2022-07-20] MEDS: FERROUS GLUCONATE 324 MG TAB PO SCH (07:13)
[2022-07-20] MEDS: MULTIVITAMIN TAB PO SCH (07:13)
[2022-07-20] MEDS: DORZOLAMIDE/TIMOLOL 22.3/6.8MG/ML 10 ML BTL OP SCH (07:13)
[2022-07-20] MEDS: ASCORBIC ACID 500 MG TAB PO SCH (07:13)
--- NOTE | 2022-07-20 07:13 | Orthopedic Progress Note ---
Date of Service July 20, 2022 Assessment & Plan (1) S/P total left hip arthroplasty: Plan Doing well plan is for discharge after dressing change today PT OT. Needs bulky dressing for 48 to 72 hours remove on Monday. Coumadin dose per nomogram. Keep INR 1.8-2.2. Admission and Anticipated Discharge Date Admission Date: July 19, 2022 Subjective Doing well pain is well managed has no nausea vomiting chest pain shortness of breath fever chills. Physical Exam Physical Exam: Wound dressing clean dry and intact neurovascular check from sciatic nerve is normal. Calves nontender. Hip is located supple motion. Results & Data Vital Signs (Past 12 Hours) Vital Signs Temp Pulse Resp BP BP Pulse Ox O2 Del Method 07/20/22 06:42 36.9 C 65 16 101/65 97 Room Air 07/20/22 03:00 36.8 C 69 18 108/57 L 98 Room Air 07/19/22 21:56 37 C 52 L 16 101/51 L 96 Room Air 07/19/22 19:26 36.9 C 58 L 16 102/62 95 Room Air Diagnostic Findings Laboratory work pending.
[2022-07-20] MEDS ORDERED: dexAMETHasone 10 MG in SYRINGE 0 ML IV SCH (08:00)
--- NOTE | 2022-07-20 08:23 | Operative Report (OR) ---
DATE OF PROCEDURE: 07/19/2022 PREOPERATIVE DIAGNOSIS: Osteoarthritis, left hip. POSTOPERATIVE DIAGNOSIS: Osteoarthritis, left hip. OPERATION PERFORMED: Noncemented left total hip replacement. SURGEON: Zain Chopra M.D. TRANSPORTATION TECHNICIAN: Dr. Ferro. SECOND TRANSPORTATION TECHNICIAN: Peter Ingram PA-C PERIOPERATIVE SITUATION: Medically cleared female with intractable left hip pain, which has end-stag e disease by x-ray. She understands the risks and consequences including infection, dislocation, leg length inequality, DVT, and PE. SUMMARY OF IMPLANTS: Size 48 acetabular cup, standard liner, 6.5 x 20 screw, hole eliminator, 32 hea d, +1 high-offset Tri-Lock stem, +1 neck length, size 32 ceramic head. All DePuy implants. DESCRIPTION OF PROCEDURE: The patient was appropriately identified, site verified, and consent verif ied. Antibiotics were confirmed as being given. The left lower extremity was prepped and draped in the usual routine fashion with the patient in right lateral decubitus position. Posterior approach t o the hip was then made. Please see previous operative report that has all the details in there. Appropriate soft tissue rele ase of the capsule and the short external rotators were made. Care was taken to protect the sciatic nerve. Capsule was T'd, hip dislocated, and femoral neck resected. Serial reaming of the acetabulum carried out with a 48 cup impacted into appropriate anteversion and inclination. The screw was plac ed with excellent purchase. Trial liner seated. The femur was then flexed, internally rotated, and the femur prepared with box blank machine operator, canal finder, lateralizing rasp, and serial broaching up to a siz e 1. Trial reductions were excellent with a +1 head. The hip was then dislocated. All trial elements were removed. The wound irrigated with Betadine and Pulsavac, and then the permanent hole eliminator, liner, stem, and head seated and the hip reduced. It was stable in all planes and it was appropriately closed, please see previous operative report fo r that. The patient was then discharged to recovery room in satisfactory condition having tolerated the proce dure well. Pathology pending on bone. DVT prophylaxis per protocol. Job ID: [id number]
[2022-07-20 09:29] LABS: BUN Creatinine Ratio 20.9 (10-20); Creatinine Clr Calc Pharmacy 56.1 ml/min; Est GFR (African American) 103.2 ml/min; Est GFR (Non-African American) 89.1 ml/min; Potassium 3.7 mmol/L (3.5-5.1)
--- NOTE | 2022-07-20 09:33 | Orthopedic Progress Note ---
Date of Service July 20, 2022 Assessment & Plan (1) S/P total left hip arthroplasty: Plan: POD1 s/p total hip arthroplasty, left Dressing changed WBAT with walker PT/OT - Pt has HH set up for first two weeks then will transition to outpatient PT Frequently ice DVT prophylaxis: Coumadin as prescribed, Thigh high TEDS x 6 weeks Weekly labs to check INR, should be kept between 1.8-2.2 Pain control: Percocet as prescribed Dressing: changed today, home health may reinforce as needed Discharge home with home health x 2 weeks Follow up as scheduled with [facility] in 2 weeks Admission and Anticipated Discharge Date Admission Date: July 19, 2022 Subjective Pt was seen and examined bedside. POD #1 s/p left total hip arthroplasty. Pt was admitted last night for observation. No major events over night. Vitals are stable. Labs unremarkable. X-rays show normal post operative changed. Pt reports they are doing well and pain is controlled. They are tolerating PO intake and voiding adequate amounts. Working well with PT/OT. Pt denies F/C, N/V/D, SOB, CP. Pt deemed medically stable and ready for discharge. Physical Exam Physical Exam: General: Pt laying in hospital bed AA&O, in NAD, calm and cooperative during exam Lower Extremity: Dressing in tact and not saturated. Incisions clean, dry and with minimal drainage and no surrounding erythema, warmth or purulent drainage. Replaced dressing with 4x4s, ABD and medipore tape. Pt has full ROM of ankle and all 5 digits. Pt has 5/5 strength with resisted DF/PF. SLR in tact. Calf supple and non tender. NVI with sensation to light touch distally and good distal pulses present. Lower extremity noted to have good color and temperature with no signs of vascular or lymphatic insufficiency. In room patient was able to transer from bed to chair, chair to bed with little to no assistance Results & Data Vital Signs (Past 12 Hours) Vital Signs Temp Pulse Resp BP BP Pulse Ox O2 Del Method 07/20/22 06:42 36.9 C 65 16 101/65 97 Room Air 07/20/22 03:00 36.8 C 69 18 108/57 L 98 Room Air 07/19/22 21:56 37 C 52 L 16 101/51 L 96 Room Air
[2022-07-20 09:48] LABS: INR 1.2 (0.9-1.1); Prothrombin Time 12.7 Seconds (9.0-12.0)
--- NOTE | 2022-07-20 11:21 | Orthopedic Progress Note ---
Date of Service July 20, 2022 Assessment & Plan (1) S/P total left hip arthroplasty: Plan Discharge home today. Admission and Anticipated Discharge Date Admission Date: July 19, 2022 Subjective Patient is doing well she sitting up in bed for just waiting to go. Results & Data Vital Signs (Past 12 Hours) Vital Signs Temp Pulse Pulse Resp BP BP Pulse Ox 07/20/22 11:13 36.7 C 57 L 63 16 108/57 L 112/61 97 07/20/22 10:33 36.7 C 63 16 112/61 97 07/20/22 06:42 36.9 C 65 16 101/65 97 07/20/22 03:00 36.8 C 69 18 108/57 L 98 O2 Del Method 07/20/22 11:13 07/20/22 10:33 Room Air 07/20/22 06:42 Room Air 07/20/22 03:00 Room Air
[2022-07-20 13:18] LABS: Basophils # (auto) 0.03 K/uL (0-0.2); Basophils % (auto) 0.3 %; Eosinophils # (auto) 0.08 K/uL (0-0.50); Eosinophils % (auto) 0.8 %; Hematocrit (blood only) 36.3 % (37.0-47.0); Hemoglobin 11.9 g/dl (12.0-16.0); Immature Granulocytes # (auto) 0.05 K/uL (0.01-0.20); Immature Granulocytes % (auto) 0.5 %; Lymphocytes # (auto) 0.54 K/uL (1.2-3.4); Lymphocytes % (auto) 5.2 %; Mean Corpuscular Hemoglobin 28.9 pg (25.0-34.0); Mean Corpuscular Hgb Conc 32.8 g/dL (32.0-36.0); Mean Corpuscular Volume 88.1 fL (80.0-100.0); Mean Platelet Volume 10.6 fL (9.4-12.4); Monocytes # (auto) 0.56 K/uL (0.11-0.59); Monocytes % (auto) 5.4 %; Neutrophils % (auto) 87.8 %; Platelet Count 247 K/uL (130-400); RDW Coefficient of Variation 13.7 % (11.5-14.5); RDW Standard Deviation 44.2 fL (36.4-46.3); Red Blood Count 4.12 M/uL (4.20-5.40); White Blood Count 10.36 K/ul (4.8-10.8)
== END 2022-07-20 11:40 | disposition home health service (06) ==
LOC: PACUINP 05:18 → ASU 05:18 → 3N 11:57